=== PATIENT | male | born 1945 | race Caucasian/White ===

== ENCOUNTER 2024-11-18 05:25 | Emergency (ER) | payer MEDICARE, OTHER, SELFPAY ==
--- OUTSIDE RECORDS SUMMARY | 2024-11-18 05:27 | XMS_ITS | Clinical Summary ---
Author Organization [facility] Address [address] [place] [address] Care Team Providers Care Private Detective Name Role Phone Taryn Villalobos Primary Care Provider [phone] Allergies Active Allergy Reactions Criticality Noted Date Comments Amoxicillin Rash Low 03/10/2007 Lisinopril Rash Medium 01/27/2016 Anal sores Seasonal Allergies 04/12/2021 Other Reaction(s): Runny Nose Medications amLODIPine (NORVASC) 5 MG tablet Take 5 mg by mouth daily 3 Active atorvastatin (LIPITOR) 80 MG tablet Take 80 mg by mouth daily 3 Active nitroGLYcerin (NITROSTAT) 0.[address] 0.4 mg under the tongue every 5 minutes as needed 2 Active Glucosamine-Wale droit-Vit C-Mn (GLUCOSAMINE-CHO NDROITINOITIN) CAPS Take 1 capsule by mouth every evening Active GLUCOSAMINE-WALE DROITIN PO Take 2 capsules by mouth daily before breakfast Active multivitamin, therapeutic (THERA-VIT) TABS tablet Take 1 tablet by mouth daily Active Magnesium Oxide -Mg Supplement 500 MG TABS Take 1 tablet by mouth daily Active aspirin 81 MG EC tablet Take 81 mg by mouth every evening Active hydrOXYzine (ATARAX) 10 MG tabletIndication s:Acute pain of left knee Take 1 tablet (10 mg) by mouth every 6 hours as needed for other, itching or anxiety (adjuvant pain, spasms) 15 tablet 3 Active oxyCODONE (ROXICODONE) 5 MG tabletIndication s:Acute pain of left knee Take 1 tablet (5 mg) by mouth every 4 hours as needed for severe pain (IF pain not managed with non-pharmacolo gical and non-opioid interventions) 15 tablet 3 Active senna-docusate (SENOKOT-S/PERIC OLACE) 8.6-50 MG tabletIndication s:Acute pain of left knee Take 1 tablet by mouth 2 times daily 10 tablet 3 Active acetaminophen (TYLENOL) 325 MG tabletIndication s:Acute pain of left knee Take 2 tablets (650 mg) by mouth every 6 hours as needed for mild pain or other (and adjunct with moderate or severe pain or per patient request) 3 Active Active Problems Problem Noted Date Diagnosed Date Hypermagnesemia 07/09/2023 Acute pain of left knee 07/09/2023 Social History Tobacco Use Types Packs/Day Years Used Date Smoking Tobacco: Never Smokeless Tobacco: Never Tobacco Cessation:Counseling Given: Not Answered Adolescent Education Answer Date Record ed Getting School Help Needed Not on file 07/10 Sex and Gender Information Value Date Recorded Sex Assigned at Not on file Legal Sex Male 1:15 PM CDT Gender Identity Not on file Sexual Orientation Not on file Last Filed Vital Signs Vital Sign Reading Time Taken Comments Blood Pressure 149/87 07/13/2023 12:12 PM CDT Pulse 64 07/13/2023 12:12 PM CDT Temperature 36.7 C (98 F) 07/13/2023 12:12 PM CDT Respiratory Rate 16 07/13/2023 12:1 2 PM CDT Oxygen Saturation 96% 07/13/2023 12: 12 PM CDT Inhaled Oxygen Concentration - - Weight 109.6 kg (241 lb 9.6 oz) 023 10:15 PM CDT Height 180.3 cm (5' 11) 07/09/2023 10: 15 PM CDT Body Mass Index 33.7 07/09/2023 10:15 PM CDT Plan of Treatment Health Maintenance Due Date Last Done Comments ADVANCE CARE PLANNING 1945 ANNUAL REVIEW OF HM ORDERS 1945 LIPID 1945 HEPATITIS C SCREENING 1965 ZOSTER IMMUNIZATION (2 of 3) 07/20/2010 05/25/2010 FALL RISK ASSESSMENT 2012 RSV VACCINE (1 - 1-dose 75+ series) 2022 MEDICARE ANNUAL WELLNESS VISIT 04/24/2024 04/24/2023, 03/19/2022, 02/27/2021 COVID-19 Vaccine (1 - 2023- season) 2024 INFLUENZA VACCINE (#1) 2024 , 09/25/2019, 08/06/2018, Additional history exists PHQ-2 (once per calendar year) 2024 GLUCOSE 07/13/2026 07/13/2023, 04/2023, 07/12/2023, Additional history exists DTAP/TDAP/TD IMMUNIZATION (3 - Td or Tdap) 11/02/2029 11/02/2019, 03/29/2009 Pneumococcal Vaccine: 50+ Years Completed 01/27/2016, 10/24/2012 HPV IMMUNIZATION Aged Out No longer e ligible based on patient's age to complete this topic MENINGITIS IMMUNIZATION Aged Out No l onger eligible based on patient's age to complete this topic RSV MONOCLONAL ANTIBODY Aged Out No l onger eligible based on patient's age to complete this topic Procedures Procedure Name Priority Date/Time Associated Diagnosis Comments BASIC METABOLIC PANEL Routine 07/13/2023 6:49 AM CDT from Last 3 Months or Most Recently Relevant to Health Maintenance Results * (ABNORMAL) Basic metabolic panel (07/13/2023 6:49 AM CDT) [facility] Signature Sodium 139 135 - 145 mmol/L 07/13/2023 7:24 AM CDT [facility] Comment:Reference intervals for this test were updated on 07/02/2023 to more accurately reflect our healthy population. There may be differences in the flagging of prior results with similar values performed with this method. Interpretation of those prior results can be made in the context of the updated reference intervals. Potassium 4.3 3.4 - 5.3 mmol/L 07/13/2023 7:24 AM CDT [facility] Chloride 105 98 - 107 mmol/L 07/13/2023 7:24 AM CDT [facility] Carbon Dioxide (CO2) 24 22 - 29 mmol/L 07/13/2023 7:24 AM CDT [facility] Anion Gap 10 7 - 15 mmol/L 07/13/2023 7:24 AM CDT [facility] Urea Nitrogen 22.5 8.0 - 23.0 mg/dL 07/13/2023 7:24 AM [facility]T LABOR[facility] Creatinine 1.06 0.67 - 1.17 mg/dL 07/13/2023 7:24 AM CDT [facility] GFR Estimate 73 >60 mL/min/1. 73m2 07/13/2023 7:24 AM CDT LABORATORY Calcium 9.3 8.8 - 10.2 mg/dL 07/13/2023 7:24 AM CDT LABOR[facility]ORY Glucose 130(H) 70 - 99 mg/dL 07/13/2023 7:24 AM CDT LABORATORY Blood STRUCTURE OF LEFT HAND / Unknown Venipuncture / Unknown 07/13/2023 6:49 AM CDT 07/13/2023 7:01 AM CDT Gaye Ruff PA-C LAB - BLOOD ORDERABLES F inal Result LABORATORY [facility] [address] [facility] (1st floor, no room number) [place] [address], [place] [phone] from Last 3 Months or Most Recently Relevant to Health Maintenance Insurance [employer] MEDICARE MEDICA PRIME SOLUTION MEDICARE Advance Directives For more information, please contact: [phone] * Full Code (Latest Code Status on File) Date Activated Date Inactivated Comments 07/09/2023 10:11 PM 07/13/2023 4:37 PM All basic a nd advanced life-sustaining interventions are performed as appropriate Question Answer Comments Code status determined by: Discussion with joseline nt/ legal decision maker Care Teams Private Detective Relationship Specialty Start Date End Date Taryn Villalobos [address] [facility] [place] [id number] PCP - General Internal Medicine 07/09/23
--- OUTSIDE RECORDS SUMMARY | 2024-11-18 05:27 | XMS_ITS | Clinical Summary ---
Author Organization [facility] [employer] [facility] Address [address] [address] Phone Care Team Providers Care Ritual Circumciser Name Role Phone Taryn Villasenor MD Primary Care Provider [phone] Allergies Active Allergy Reactions Criticality Noted Date Comments Amoxicillin RASH Medium 11/08/2024 Medications oxyCODONE (Roxicodone) 5 MG immediate release tablet Take 1 Tablet by mouth every four hours as needed for Pain. 10 Tablet 11/08/2024 1:30 PM BUS GREASER 11/08/2024 Active Encounters Date Type Department Care Team Description 11/08/2024 10:34 AM BUS GREASER - 11/08/2024 1:26 PM [facility] Emergency [facility] Emergency Department [address] [place] [address] Gail Acosta DO History of renal stone (Primary Dx); Left flank pain Discharge Disposition: Home and/or Self Care 11/08/2024 Travel from Last 3 Months Social History Tobacco Use Types Packs/Day Years Used Date Smoking Tobacco: Never Assessed EH IP Custom IPV Answer Date Recorded Do you feel UNSAFE in any of your personal relationships with your family members or any other acquaintances? Deferred 2024 Sex and Gender Information Value Date Recorded Sex Assigned at Not on file Legal Sex Male 10:29 AM BUS GREASER Gender Identity Not on file Sexual Orientation Not on file Last Filed Vital Signs Vital Sign Reading Time Taken Comments Blood Pressure 165/87 11/08/2024 1:00 PM BUS GREASER Pulse 62 11/08/2024 1:00 PM BUS GREASER Temperature 36.5 C (97.7 F) 11/08/2024 10:33 AM BUS GREASER Respiratory Rate 18 11/08/2024 1:00 PM BUS GREASER Oxygen Saturation 97% 11/08/2024 1:00 PM BUS GREASER Inhaled Oxygen Concentration - - Weight 110.7 kg (244 lb) 11/08/2024 10:33 AM BUS GREASER Height 182.9 cm (6') 11/08/2024 10:33 AM BUS GREASER Body Mass Index 33.09 11/08/2024 10:33 AM BUS GREASER Plan of Treatment Health Maintenance Due Date Last Done Comments PERTUSSIS (Standing Order) 1966 TETANUS (Standing Order) 1966 Pneumococcal Vaccine: 50+ yr s (Standing Order) (1 of 1 - PCV) 1997 Shingrix (Zoster recombinant ) vaccine (Standing Order) (1 of 2) 1997 RSV Vaccination (60+ yrs) (Abrysvo/Arexvy) (1 - 1-dose 75+ series) 2022 COVID-19 Vaccine (2023-2 5 season) 2024 Influenza Vaccine Seasonal (Standing Order) (#1) 2024 HPV Vaccine (Standing Order) Aged Out No longer eligible based on patient's age to complete this topic Hepatitis B Vaccine (Standin g Order) Aged Out No longer eligible b ased on patient's age to complete this topic Procedures Procedure Name Priority Date/Time Associated Diagnosis Comments URINALYSIS, REFLEX TO CULTURE STAT 11/08/2024 12:[address] ABDOMEN PELVIS WO IV CONTRAST STAT 11/08/2024 11:45 AM BUS GREASER COMPREHENSIVE METABOLIC PANEL STAT 11/08/2024 10:58 AM BUS GREASER HEMOGRAM/DIFF STAT 11/08/2024 10:58 AM BUS GREASER HOLD SERUM TUBE STAT 11/08/2024 10:58 AM BUS GREASER HOLD NA CITRATE STAT 11/08/2024 10:58 AM BUS GREASER HOLD EDTA STAT 11/08/2024 10:58 AM BUS GREASER HOLD LI HEPARIN STAT 11/08/2024 10:58 AM BUS GREASER from Last 3 Months Results * URINALYSIS, REFLEX TO CULTURE (11/08/2024 12:38 PM BUS GREASER) Urine Color Yellow Straw, Yellow, Michelle 11/08/2024 12:51 PM [facility] Urine Appearance Clear Clear 11/08/2024 12:51 PM [facility] Urine Specific [place] 1.025 1.003 - 1.035 11/08/2024 12:51 PM [facility] Urine pH 5.5 5.0 - 8.0 11/08/2024 12:51 PM [facility] Urine Glucose Negative Negative 11/08/2024 12:51 PM [facility] Urine Ketones Negative Negative 11/08/2024 12:51 PM [facility] Urine Protein Trace Negative, Trace mg/dL 11/08/2024 12:51 PM [facility] Urine Nitrites Negative Negative 11/08/2024 12:51 PM [facility] Urine Leukocyte Esterase Negative Negative 11/08/2024 12:51 PM [facility] Urine URINE SPECIMEN COLLECTION, CLEAN CATCH / Unknown Non-blood collection / Unknown 11/08/2024 12:38 PM BUS GREASER 11/08/2024 12:43 PM BUS GREASER Narrative [facility] - 11/08/2024 12:51 PM BUS GREASER A routine urine not reflexing to a Microscopic exam means the dipstick blood test is negative. A Urine Culture is not indicated. us Gail Acosta DO EC URINE ORDERABLES Final R esult [facility] [address] [place] [address], [facility] * CT ABDOMEN PELVIS WO IV CONTRAST (11/08/2024 11:45 AM BUS GREASER) Anatomical Region Laterality Modality Abdomen, Pelvis Computed Tomogra phy 11/08/2024 11:4 5 AM BUS GREASER Narrative 11/08/2024 11:57 AM BUS GREASER This document is currently in Final Status Exam CT ABDOMEN PELVIS WO IV CONTRAST INDICATION: Flank pain, kidney stone suspected; COMPARISON: None FINDINGS: No obstructing urinary stone. Multiple bilateral urinary calculi the largest on the left in the left upper pole measures approximately 6 mm (series 2, image 46), and the largest on the right measures approximately 3 mm in the right lower pole (series 2, image 52). Lateral to the right kidney there are postoperative changes of right partial nephrectomy (series 2, image 55). Duplex right renal collecting system. Unremarkable appearance of the liver, gallbladder, pancreas, spleen, and adrenals. Normal caliber small bowel. Normal appendix. Normal colon. Cardiac stent. Coronary calcifications. Degenerative changes of the spine and pelvis. IMPRESSION: No obstructing urinary stone. No acute findings in the abdomen or pelvis. Electronically Signed: Justin Ritchie 11/08/2024 11:57 AM Procedure Note Justin Ritchie MD - 11/08/2024 This document is currently in Final Status Exam CT ABDOMEN PELVIS WO IV CONTRAST INDICATION: Flank pain, kidney stone suspected; COMPARISON: None FINDINGS: No obstructing urinary stone. Multiple bilateral urinary calculithe largest on the left in the left upper pole measures approximately 6 mm(series 2, image 46), and the largest on the right measures approximately3 mm in the right lower pole (series 2, image 52). Lateral to the rightkidney there are postoperative changes of right partial nephrectomy(series 2, image 55). Duplex right renal collecting system. Unremarkable appearance of the liver, gallbladder, pancreas, spleen, andadrenals. Normal caliber small bowel. Normal appendix. Normal colon. Cardiac stent. Coronary calcifications. Degenerative changes of the spineand pelvis. IMPRESSION: No obstructing urinary stone. No acute findings in the abdomenor pelvis. Electronically Signed: Justin Ritchie 11/08/2024 11:57 AM us Gail Acosta DO EC CT ORDERABLES Final Resu lt * HOLD LI HEPARIN (11/08/2024 10:58 AM BUS GREASER) Blood BLOOD SPECIMEN / Unknown Venipuncture / Unknown 11/08/2024 10:58 AM BUS GREASER 11/08/2024 11:03 AM BUS GREASER us Gail A Dave DO EC CHEMISTRY ORDERABLES Fin al Result Performing Organization Address [facility] Phone Number [facility] [address] [place] [address] * HOLD NA CITRATE (11/08/2024 10:58 AM BUS GREASER) Blood BLOOD SPECIMEN / Unknown Venipuncture / Unknown 11/08/2024 10:58 AM BUS GREASER 11/08/2024 11:03 AM BUS GREASER us Gail A Dave DO EC HEMATOLOGY ORDERABLES Fi nal Result Performing Organization Address [facility] Phone Number [facility] [address] [place] [address] * HOLD PURPLE TUBE (11/08/2024 10:58 AM BUS GREASER) Blood BLOOD SPECIMEN / Unknown Venipuncture / Unknown 11/08/2024 10:58 AM BUS GREASER 11/08/2024 11:03 AM BUS GREASER Gail A Dave DO EC HEMATOLOGY ORDERABLES Fi nal Result Performing Organization Address [facility] Phone Number [facility] [address] [place] [address] * HOLD SERUM TUBE (11/08/2024 10:58 AM BUS GREASER) Blood BLOOD SPECIMEN / Unknown Venipuncture / Unknown 11/08/2024 10:58 AM BUS GREASER 11/08/2024 11:03 AM BUS GREASER us Gail A Dave DO EC CHEMISTRY ORDERABLES Fin al Result Performing Organization Address [facility] Phone Number [facility] [address] [place] [address] * (ABNORMAL) COMPREHENSIVE METABOLIC PANEL (11/08/2024 10:58 AM BUS GREASER) Sodium 140 134 - 143 mEq/L 11/08/2024 11:20 AM [facility] Potassium 4.2 3.4 - 5.1 mEq/L 11/08/2024 11:20 AM [facility] Chloride 111(H) 99 - 110 mEq/L 11/08/2024 11:20 AM [facility] Carbon Dioxide 22 19 - 29 mEq/L 11/08/2024 11:20 AM [facility] Anion Gap 7.0 3.0 - 15.0 mEq/L 11/08/2024 11:20 AM [facility] Blood Urea Nitrogen 23 5 - 24 mg/dL 11/08/2024 11:20 AM [facility] Creatinine 0.97 0.70 - 1.20 mg/dL 11/08/2024 11:20 AM [facility] Glomerular Filtration Rate 80 >60 mL/min/1. 73 m*2 11/08/2024 11:20 AM [facility] Comment:Risk of cardiovascul ar disease increases when GFR is abnormal; persistently reduced GFR values are a specific indication of CKD. This calculation uses CKD- EPI 2020 equation without adjustment for race; it has not been validated in women. Calcium 9.1 8.4 - 10.5 mg/dL 11/08/2024 11:20 AM [facility] Glucose 110(H) 70 - 99 mg/dL 11/08/2024 11:20 AM [facility] Protein, Total 7.5 6.0 - 8.0 g/dL 11/08/2024 11:20 AM [facility] Albumin 3.9 3.5 - 5.0 g/dL 11/08/2024 11:20 AM [facility] Alkaline Phosphatase 72 40 - 150 IU/L 11/08/2024 11:20 AM [facility] Aspartate Aminotransferase 25 10 - 40 IU/L 11/08/2024 11:20 AM [facility] Alanine Aminotransferase 26 6 - 40 IU/L 11/08/2024 11:20 AM [facility] Bilirubin, Total 0.7 0.2 - 1.2 mg/dL 11/08/2024 11:20 AM [facility] Blood BLOOD SPECIMEN / Unknown Venipuncture / Unknown 11/08/2024 10:58 AM [facility] 11/08/2024 11:03 AM [facility] - 11/08/2024 11:20 AM [facility] Current ADA criteria for Glucose: Normal: 70-99 mg/dL Impaired Fasting Glucose: 100-125 mg/dL Diabetes Mellitus: at or above 126 mg/dL The diagnosis of diabetes must be confirmed on a subsequent day by measuring Fasting Plasma Glucose, 2-hr PG or random plasma glucose (if symptoms are present). us Gail Acosta DO CHEMISTRY ORDERABLES Fin al Result Performing Organization Address City/State/[facility] Co de Phone Number [facility] [address] [place] [address] * HEMOGRAM/DIFFERENTIAL (11/08/2024 10:58 AM [facility]) WBC 7.1 3.2 - 11.0 10*9/L 11/08/2024 11:05 AM [facility] RBC 4.71 4.14 - 5.76 10*12/L 11/08/2024 11:05 AM [facility] HGB 14.7 12.9 - 16.9 g/dL 11/08/2024 11:05 AM [facility] HCT 42.7 38.4 - 49.7 % 11/08/2024 11:05 AM [facility] MCV 90.7 81.4 - 99.0 fL 11/08/2024 11:05 AM [facility] MCH 31.2 26.7 - 33.1 pg 11/08/2024 11:05 AM [facility] MCHC 34.4 31.6 - 35.5 g/dL 11/08/2024 11:05 AM [facility] RDW 12.5 11.3 - 14.6 % 11/08/2024 11:05 AM [facility] PLT 207 130 - 375 10*9/L 11/08/2024 11:05 AM [facility] Neutrophils % 75.2 % 11/08/2024 11:05 AM [facility] Lymphocytes % 18.0 % 11/08/2024 11:05 AM [facility] Monocytes % 5.6 % 11/08/2024 11:05 AM [facility] Eosinophils % 0.7 % 11/08/2024 11:05 AM [facility] Basophils % 0.4 % 11/08/2024 11:05 AM [facility] Immature Granulocytes % 0.1 % 11/08/2024 11:05 AM [facility] Neutrophils Absolute 5.3 1.5 - 7.6 10*9/L 11/08/2024 11:05 AM [facility] Lymphocytes Absolute 1.3 0.8 - 3.3 10*9/L 11/08/2024 11:05 AM [facility] Monocytes Absolute 0.4 0.2 - 0.9 10*9/L 11/08/2024 11:05 AM [facility] Eosinophils Absolute 0.1 0.0 - 0.4 10*9/L 11/08/2024 11:05 AM [facility] Basophils Absolute 0.0 0.0 - 0.1 10*9/L 11/08/2024 11:05 AM [facility] Immature Granulocytes Absolute 0.01 0.00 - 0.06 10*9/L 11/08/2024 11:05 AM [facility] Blood BLOOD SPECIMEN / Unknown Venipuncture / Unknown 11/08/2024 10:58 AM BUS GREASER 11/08/2024 11:03 AM BUS GREASER us Gail Acosta DO EC HEMATOLOGY ORDERABLES Fi nal Result [facility] [address] [place] [address], [facility] from Last 3 Months Insurance [employer] MEDICARE COST PART A&B Care Teams Ritual Circumciser Relationship Specialty Start Date End Date Taryn Villasenor MD [address] [facility] [place] [id number] PCP - General Internal Medicine 11/08/24
--- OUTSIDE RECORDS SUMMARY | 2024-11-18 05:28 | XMS_ITS | Encounter Summary ---
Author Organization [facility] Address [address] [address] Phone Care Team Providers Care Night Custodian Name Role Phone Taryn Villasenor MD Primary Care Provider [phone] Encounter Details Date Type Department Care Team (Latest Contact Info) Description 11/08/2024 Travel Social History Tobacco Use Types Packs/Day Years Used Date Smoking Tobacco: Never Assessed EH IP Custom IPV Answer Date Recorded Do you feel UNSAFE in any of your personal relationships with your family members or any other acquaintances? 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 Gender Identity Not on file Sexual Orientation Not on file documented as of this encounter Functional Status * Patient's Vision Adequate to Safely Complete Daily Activities Answer Date of Assessment Author Yes 11/08/2024 11:00 AM Viktor Agee, RN * Patient's Memory Adequate to Safely Complete Daily Activities Answer Date of Assessment Author Yes 11/08/2024 11:00 AM Viktor Agee, RN documented as of this encounter Mental Status * Patient's Judgment Adequate to Safely Complete Daily Activities Answer Entry Date Author Yes 11/08/2024 11:00 AM Viktor Agee, RN documented in this encounter Plan of Treatment Not on file documented as of this encounter Visit Diagnoses Not on filedocumented in this encounter Care Teams Night Custodian Relationship Specialty Start Date End Date Taryn Villasenor MD [address] [place] [address] [place] [id number] PCP - General Internal Medicine 2/2/25 documented as of this encounter
--- OUTSIDE RECORDS SUMMARY | 2024-11-18 05:28 | XMS_ITS | Data Portability ---
Author Organization [place] [facility] [place] [facility] Address [address] [place] [address] Care Team Providers Care Metal Handler Name Role Phone KULWANT HARDY Primary Care Provider CHICA WILSON Primary Care Provider [phone] Assessment Encounter Date Assessment Date Assessment LastModified by Organization Details LastModified Time 06/02/2024 06/02/2024 79 year old male with history of prostate cancer who is here today due to renal mass [email or web address] Not available 06/09/2024 14:17:54 06/24/2024 06/24/2024 79 year old male with a history of right renal masses, nephrolithias is, and prostate cancer. Not available 06/24/2024 16:27:55 08/18/2024 08/18/2024 79 year old male with a history of right renal oncocytomas, nephrolithias is, and prostate cancer. Not available 08/18/2024 11:55:36 11/11/2024 11/11/2024 79 year old male with a history of right renal oncocytomas, nephrolithias is, and prostate cancer. Not available 11/11/2024 08:21:03 Plan of Treatment Reminders Order Date Submit Date Provider Last Modified By Organization Details Last Modified Time Details Appointments None recorded. Lab PSA, total, serum or plasma [address] [facility], [address], [address], [place], [address], 02/05/202 5 14:18:57 Referral orthopedic surgeon referral 2024 025 [facility], [address], [address], [place], [address], 5 04:07:39 Procedures None recorded. Surgeries partial nephrectomy , robot assisted laparoscopi c, with intra-opera tive ultrasound (SURG) 2023 024 [email or web address] Not available 4 09:42:[address], abdomen, w/wo contrast 2023 024 [email or web address] [facility], [address] [place], [address], 5 11:00:26 Medication Orders None recorded. Patient TargetsNo targets recorded. Patient Instructions Encounter Date Encounter Id Patient Instructions Last Modified By Organization Details Last Modified Time 06/02/2024 [id number] We discussed the natural history of renal masses. While some of these masses (about 20%) may be benign, the concern is that this represents renal cell carcinoma. We then discussed the significance of the size of renal masses. For masses under 3 cm, the risk of metastatic disease is <1%. Masses larger than this carry a significant risk for metastatic disease and treatment should be seriously considered. - He will follow-up with Dr. Jarvis to discuss surgical options [email or web address] Not available 06/09/2024 14:18:29 06/24/2024 [id number] Two Right Renal Masses: We discussed the natural history of renal masses. While some of these masses (about 20%) may be benign, the concern is that this represents renal cell carcinoma. We then discussed the significance of the size of renal masses. For masses under 3 cm, the risk of metastatic disease is <1%. Masses larger than this carry a significant risk for metastatic disease and treatment should be seriously considered. We then discussed treatment options including: -Observation -Active surveillance -Partial nephrectomy -Radical nephrectomy -Percutaneous cryoablation -Percutaneous radiofrequency ablation We also touched on the role of percutaneous biopsy and its utility in guiding decision making. Based on my review of his imaging I think this would be best addressed with double right partial nephrectomy. We discussed the risks of surgery including bleeding requiring transfusion, infection, injury to surrounding structures, need for reoperation, risk of positive margin, urine leak, postoperative ileus, recurrence, and anesthetic risks including DVT/PE, MS, and CVA. He woudl like to proceed. Prostate cancer: He remains no evidence of disease. We will repeat his prostate specific antigen later this year.. Nephrolithiasis: His stones are non-obstructing and he is now asymptomatic. I recommend we observe for now while we address his renal masses. [email or web address] Not available 06/24/2024 16:29:05 08/18/2024 [id number] Renal oncocytoma s: We discussed these are benign tumors and no further treatment is needed. I do recommend a CT in 3 months to assess for healing and ensure no deleterious effects from surgery. Nephrolithiasis: We will reassess his stone burden with imaging in 3 months as above Prostate cancer: He is no evidence of disease. We will repeat his prostate specific antigen annually. [email or web address] Not available 08/18/2024 11:55:23 11/11/2024 [id number] Renal oncocytoma s: No evidence of recurrence. Nephrolithiasis/Lo w back pain: I am not very convinced that his pain is from his non-obstructing kidney stones. His pain is quite low in nature compared to his kidney and his pain also radiates down his left leg. I am more concerning for a pinch nerve/slipped disc/or muscle injury. I will have him evaluated as soon as possible with orthopaedic surgery. Prostate cancer: He is no evidence of disease. He is due for a repeat prostate specific antigen. We will repeat his prostate specific antigen annually. [email or web address] Not available 11/11/2024 08:51:07 Reason for Referral Orthopedic Surgeon Referral for Low back pain Referring Physician: Antoni Jarvis, Urology, Encounter Date: 11/11/2024 Results Created Date Observation Date Name Description Value Unit Range Abnormal Flag Note LastModifiedBy Organization Detail LastModifiedTime 06/01/2005/25/2024 CT, abdom en + pelvi s, w/o contr ast No observ ation record ed. [email or web address] Not Available 2023 11:50:27 06/01/2005/23/2024 CT, abdom en + pelvi s, w/o contr ast No observ ation record ed. [email or web address] Not Available 2023 11:51:13 06/09/20 24 06/01/2024 MRI, abdom en, w/wo contr ast No observ ation record ed. [email or web address] Not Available 2023 11:01:09 11/09/19 25 11/08/2024 CT, abdom en + pelvi s, w/o contr ast No observ ation record ed. Not Available 2024 08:48:28 Result Notes None recorded. Problems Name Problem SNOMED Code Status Onset Date Resolution Date Notes Provider Name and Address Organization Details Recorded Time Renal mass 766255017 Active 2023 El Meat null, [facility] 4 08:58:19 Hypertensive disorder 14987933 Active 2023 El Meat null, [facility] 4 08:59:49 Coronary arterioscleros is 31005314 Active 2023 [facility] null, [facility] 4 09:00:20 Hypercholester olemia 75620378 Active 2023 [facility] Meat null, [facility] 4 09:00:25 Polyp of colon 45736909 Active 2023 El Meath null, [facility] 4 09:00:32 Malignant tumor of prostate 655352408 Active 2023 El Meat null, [facility] 4 09:00:40 Osteoarthritis 715240815 Active 2023 El Meat null, [facility] 4 09:00:48 Problem Notes None recorded. Procedures Surgical History Date Name Laterality Status Provider Name and Address Organization Details Recorded Time 11/11/19 25 COMPLEX VISIT completed Antoni Jarvis MD [address] [place] [address],[address], [place], [address], [facility] 11/11/2024 08:20:59 11/11/19 25 Blood Draw/DIRECTOR EXPERIMENTAL MEDICINE/PSA RESULTS completed Manda Cabello [facility] 11/11/2024 08:58:25 06/24/20 24 COMPLEX VISIT completed Antoni Jarvis MD [address], [place], [address], [facility] [place] [facility] 06/24/2024 16:27:26 10/07/19 21 Diagnostic colonoscopy completed Not Available Health Note 05/31/2024 16:55:27 03/18/20 13 Laps surg [id number] rpbic rad completed Not Available [facility] 03/17/2020 20:40:21 11/28/19 13 Biopsy of prostate completed Not Available [facility] 03/17/2020 20:40:21 Insert epicard eltrd open completed Not Available Health Note 05/31/2024 16:55:27 Removal of prostate completed Not Available Health Note 05/31/2024 16:55:27 Prostatectomy (turp) completed Not Available Health Note 05/31/2024 16:55:27 Imaging Results Imaging Date Name Status LastModified by Organiz ation Details LastModified Time 05/25/2024 CT, abdomen + pelvis, w/o contrast completed Information not available 06/01/2024 11:50:27 05/23/2024 CT, abdomen + pelvis, w/o contrast completed Information not available 06/01/2024 11:51:13 06/01/2024 MRI, abdomen, w/wo contrast completed [email or web address] Information not available 06/11/2024 11:01:09 11/08/2024 CT, abdomen + pelvis, w/o contrast completed Information not available 11/11/2024 08:48:28 Procedure Notes None recorded. Medical Equipment None Reported. Allergies Allergen ID Allergen Name Allergen Category Reaction Reaction Severity Criticality Documentation Date Start Date Code Code System Note Provider Name and Address Organization Details Recorded Time 380925 amoxicill in medicatio n Not available Not available Not available 03/16/2020 723 RxNorm Not Available Not Available Not Available 818819 lisinopri l medicatio n Not available Not available Not available 06/18/2024 05258 RxNorm Not Available Not Available Not Available Medications Name Sig Start Date Stop Date Status Note LastModified by Organization Details LastModified Time atorvasta tin 80 mg tablet TAKE 1 TABLET BY MOUTH ONCE DAILY active Not Available Not Available No t Available hydrocodo ne 5 mg-acetam inophen 325 mg tablet TAKE 1 TO 2 TABLETS BY MOUTH EVERY 4 HOURS NEEDED FOR PAIN MAX ACETAMIN OPHEN DOSE 400MG IN 24 HOURS 06/18 completed Not Available Not Available Not Available prednison e 20 mg tablet TAKE 1 TABLET BY MOUTH ONCE DAILY FOR 5 DAYS 06/18 completed Not Available Not Available Not Available amlodipin e 5 mg tablet TAKE 1 TABLET BY MOUTH ONCE DAILY active Not Available Not Available No t Available allopurin ol 100 mg tablet TAKE 1 TABLET BY MOUTH ONCE DAILY FOR 2 WEEKS, THEN INCREASE TO 2 TABLETS DAILY FOR 2 WEEKS 11/11 completed HN: Patient reports no longer taking Not Available Not Available Not Available sulfameth oxazole 800 mg-trimet hoprim 160 mg tablet TAKE 1 TABLET BY MOUTH TWICE DAILY FOR 7 DAYS 06/18 completed Not Available Not Available Not Available acetamino phen ER 650 mg tablet,ex tended release 650 mg 4/day active Not Available Not Available No t Available oxycodone 15 mg tablet 5mg Every 4 hours as needed active Not Available Not Available No t Available nitroglyc simran 0.4 mg sublingua l tablet DISSOLVE ONE TABLET UNDER THE TONGUE EVERY 5 MINUTES NEEDED FOR CHEST PAIN. DO NOT EXCEED A TOTAL OF 3 DOSES IN 15 MINUTES active Not Available Not Available No t Available ibuprofen 600 mg tablet TAKE 1 TABLET BY MOUTH EVERY 6 HOURS NEEDED FOR PAIN MAX DOSE OF 3200 MG PER DAY 06/18 completed Not Available Not Available Not Available methylpre dnisolone 4 mg tablets in a dose pack TAKE BY MOUTH DIRECTED ON INSIDE OF PACKAGE 06/18 completed Not Available Not Available Not Available fluticaso ne propionat e 50 mcg/actua tion nasal spray,lyndsay pension USE 2 SPRAY(S) IN EACH NOSTRIL ONCE DAILY active Not Available Not Available No t Available magnesium 250 mg (as magnesium oxide) tablet 250 mg 1/day active Not Available Not Available No t Available Vitamin C 1000 mg 1/day active Not Available Not Available No t Available amlodipin e 5mg 1/day 06/18 completed Not Available Not Available Not Available B12 1000 mcg 1/day active Not Available Not Available No t Available H2Q CoQ10 200 mg/gram oral powder 200mg 1/day active Not Available Not Available No t Available zinc 15 mg-colos- egg-hb232 -psacc1 50 mg-thyme 1 mg-aceman 1 mg capsule 50 mg 1/day active Not Available Not Available No t Available Vitals Date Recorded Body mass index (BMI) Body height Body weight Provider Name and Address Organization Details Last Updated DateTime 06/02/2024 33.5 kg/m2 180.34 cm 596057.298 025503 g Not Available Health Note 06/02/2024 14:28:34 Date Recorded Body height Provider Name an d Address Organization Details Last Updated DateTime 06/24/2024 [facility] Date Recorded Body height Provider Name an d Address Organization Details Last Updated DateTime 08/18/2024 180.34 cm El [facility] 11:21:58 Date Recorded Body height Provider Name an d Address Organization Details Last Updated DateTime 11/11/2024 180.34 cm El [facility] 08:42:01 Social History Question Answer Notes LastModified by Organizat ion Details LastModified Time Tobacco Smoking Status Never Smoker Not Available Health Note 05/31/2024 16:55:28 What Is Your Level Of Alcohol Consumption? None [email or web address] Information not available 06/02/2024 What Is Your Level Of Caffeine Consumption? None [email or web address] Information not available 05/31/2024 How Much Tobacco Do You Chew? None [email or web address] Information not available 05/31/2024 Do You Or Have You Ever Used E-cigarettes Or Vape? Never Used Electronic Cigarettes [email or web address] Information not available 05/31/2024 Race White Information n ot available 03/17/2020 Marital Status Informati on not available 03/17/2020 What Was The Date Of Your Most Recent Tobacco Screening? 11/11/2024 Information not available 11/11/2024 What Is Your Relationship Status? [email or web address] Information not available 05/31/2024 Are You Sexually Active? No [email or web address] Information not available 05/31/2024 Do You Or Have You Ever Used Smokeless Tobacco? Never Used Smokeless Tobacco [email or web address] Information not available 05/31/2024 Do You Use Any Illicit Or Recreational Drugs? No [email or web address] Information not available 05/31/2024 Has Tobacco Cessation Counseling Been Provided? No Information not available 06/24/2024 Do You Or Have You Ever Used Any Other Forms Of Tobacco Or Nicotine? No Information not available 06/24/2024 How Many Days In The Past Year Have You Consumed 5 Or More Drinks? 0 [email or web address] Information no t available 05/31/2024 Sex: Unknown Functional Status None recorded. Mental Status None recorded. Family History Relationship Description Onset Age of this Age Resolved Age Notes LastModified by Organization Details LastModified Time Unspecified Relation Family history of renal stone [email or web address] Not available 05/08 16:55:26 Medical History Condition Response Diabetes N Sexually Transmitted Infection N Bleeding Disorder N High Blood Pressure Y Kidney Stones Y Cancer Y Lung Disease N Depression N High Cholesterol N GERD/Acid Reflux N Heart Disease Y Immunizations Vaccine Type Date Status Note Provider Nam e and Address Organization Details Recorded Time influenza, unspecified formulation 9 completed El Meath [facility] 08/28/2024 12:09:07 zoster live 8 completed Not Available Health Note 05/31/2024 16:55:31 Influenza, adjuvanted, quadrivalent, PF 0 [facility] 12:09:07 pneum[facility] 12:09:07 influenza, unspecified formulation 5 [facility] 12:09:07 Tdap 9 completed El Meath null, [facility] 08/28/2024 12:09:07 Pneumococcal conjugate PCV 13 6 [facility] 12:09:07 zoster live 0 completed El Meath null, [facility] 08/28/2024 12:09:07 Influenza, high-dose, trivalent, PF 7 completed El Meath null, [facility] 08/28/2024 12:09:07 Influenza, high-dose, trivalent, PF 4 completed El Meath null, [facility] 08/28/2024 12:09:07 Influenza, high-dose, trivalent, PF 5 completed El Meath null, [facility] 08/28/2024 12:09:07 Influenza, high-dose, trivalent, PF 8 completed El Meath null, [facility] 08/28/2024 12:09:07 Influenza, high-dose, trivalent, PF 8 completed El Meath null, [facility] 08/28/2024 12:09:07 Influenza, high-dose, trivalent, PF 9 completed El Me[place] null, [facility] 08/28/2024 12:09:07 Influenza, split virus, trivalent, preservative 7 completed El Meath null, [facility] 08/28/2024 12:09:07 Influenza, split virus, trivalent, preservative 2 completed El Meath null, [facility] 08/28/2024 12:09:07 Influenza, split virus, trivalent, PF 3 completed El Meat null, [facility] 08/28/2024 12:09:07 Td (adult), 2 Lf tetanus toxoid, preservative free, adsorbed 0 completed El Meat null, [facility] 08/28/2024 12:09:07 Past Encounters Encounter ID Performer Location Encounter Start Date Encounter Closed Date Diagnosis/Indication Diagnosis SNOMED-CT Code Diagnosis ICD10 Code Diagnosis Note [id number] ADILENE Melo [facility] [address] [place] [address] [place] [id number] 06/02/2024 14:25:49 06/15/2024 10:48:27 Renal mass 666223493 N28.89 [id number] Antoni Jarvis MD [facility] [address] [place] [address],it e [address] [place] [id number] 06/24/2024 15:54:51 06/25/2024 09:18:54 Kidney stone 07221074 N20.0 Renal mass 256088736 N28 .89 Malignant tumor of prostate 687581797 C61 [id number] Antoni Jarvis MD [facility] [address] [place] [address],[facility] e [address] [place] [id number] 08/18/2024 11:17:59 08/18/2024 12:10:35 Oncocytoma of right kidney 1490873351 532372 D30.01 Kidney stone 76781494 N2 0.0 Malignant tumor of prostate 768763682 C61 [id number] El Alexis [facility] [address] [place] [address],[facility] e [address] [place] [id number] 11/11/2024 08:40:33 11/17/2024 13:09:21 Oncocytoma of right kidney 5098039472 719794 D30.01 Kidney stone 07670316 N2 0.0 Malignant tumor of prostate 114982192 C61 Low back pain 890622644 M54.50 Health Concerns Section Related Observation LastModified by Organization Detai ls LastModified Time None Recorded Concern Status LastModified by Organization Details LastModified Time None Recorded Advance Directives Directive None Recorded Payers Encounter Date Sequence Insurance Name Policy Number Policy Stroud Covered Member ID Stroud Member ID Guarantor Name 06/02/2024 1 [employer] [place] [place] [id number] Harley Corbett [id number] Harley Corbett Jr 06/24/2024 1 [employer] [place] [id number] Harley Corbett [id number] Harley Corbett Jr 08/18/2024 1 [employer] - [employer] - [place] [id number] Harley Corbett [id number] Harley Corbett Jr 11/11/2024 1 [employer] - [employer] - 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 Stephens15 months later had radiation therapy due to PSA recurrencePSA remains undetectable. <0.02 &04/24/2023) Due to acute left flank pain he presented to the ER to be seenCT ab/pelvis without contrast obtained on 05/25/2024:Impression: 1. Multiple stable nonobstructing renal calculi. No hydroureteronephrosis .2. Exophytic right renal solid mass versus less likely cyst measuring 3.0 centimeters. This will need to be further assessed with an outpatient CT or MR with a renal protocol. Renal MRI obtained on 06/01/2024 showing A 3.3 x 2.3 cm solid enhancing mass exophytic in nature involving the lower pole right kidney; highly concerning for a renal cell carcinoma. A 1.4 cm solid enhancing mass interpolar region right mid kidney; concerning for renal cell carcinoma. No other renal abnormalities identified. The liver, spleen and pancreas are normal. Gallbladder is unremarkable. No adrenal pathology. No retroperitoneal lymphadenopathy. ADILENE Mays [address] [facility],[address], [place], [address], [facility] 06/09/2024 14:18:57 06/24/2024 text/html This is a 79 yea r old male who is here for the ongoing management of right renal masses, nephrolithiasis, and prostate cancer. He developed new onset left flank pain and presented to the Emergency Room 05/25/2024.He underwent a CT of the abdomen and pelvis without intravenous contrast on 05/25/2024 which revealed bilateral non-obstructing renal calculi and a possible 3 cm right renal mass.He underwent an MRI of the abdomen with and without intravenous contrast on 06/01/2024 which revealed a 1 cm and 3 cm exophytic renal masses.He has since passed multiple stones and his flank pain has resolved. He is status post robotic-assisted laparoscopic radical prostatectomy and bilateral pelvic lymphadenectomy (2012).He subsequently underwent salvage radiation therapy in 2013.His most recent prostate specific antigen was <0.02 ng/mL (04/24/2023). Antoni Jarvis MD [address] [facility] [address], [place], [address], [facility] 06/24/2024 16:29:15 08/18/2024 text/html This is a 79 yea r old male who is here for the ongoing management of right renal oncocytomas, nephrolithiasis, and prostate cancer. He developed new onset left flank pain and presented to the Emergency Room 05/25/2024.He underwent a CT of the abdomen and pelvis without intravenous contrast on 05/25/2024 which revealed bilateral non-obstructing renal calculi and a possible 3 cm right renal mass.He underwent an MRI of the abdomen with and without intravenous contrast on 06/01/2024 which revealed a 1 cm and 3 cm exophytic renal masses.He has since passed multiple stones and his flank pain has resolved. He is now status post robotic-assisted laparoscopic right partial nephrectomy 08/07/2024.Pathology: Both tumors pure oncocytoma, negative margins He is status post robotic-assisted laparoscopic radical prostatectomy and bilateral pelvic lymphadenectomy (2012).He subsequently underwent salvage radiation therapy in 2013.His most recent prostate specific antigen was <0.02 ng/mL (04/24/2023). Antoni Jarvis MD [address] [place] [address],[address], [place], [address], [facility] 08/18/2024 11:55:51 11/11/2024 text/html This is a 79 yea r old male who is here for the ongoing management of right renal oncocytomas, nephrolithiasis, and prostate cancer. He developed new onset left flank pain and presented to the Emergency Room 05/25/2024.He underwent a CT of the abdomen and pelvis without intravenous contrast on 05/25/2024 which revealed bilateral non-obstructing renal calculi and a possible 3 cm right renal mass.He underwent an MRI of the abdomen with and without intravenous contrast on 06/01/2024 which revealed a 1 cm and 3 cm exophytic renal masses.He is now status post robotic-assisted laparoscopic right partial nephrectomy 08/07/2024.Pathology: Both tumors pure oncocytoma, negative margins He developed worsening left sided flank pain on 11/08/2024 and he presented to the Emergency Room.He completed a CT of the abdomen and pelvis without intravenous contrast on 11/08/2024 which revealed bilateral nephrolithiasis measuring up to 6 mm on the left and 3 mm on the right without hydronephrosis or obstruction. He is status post robotic-assisted laparoscopic radical prostatectomy and bilateral pelvic lymphadenectomy (2012).He subsequently underwent salvage radiation therapy in 2013.His most recent prostate specific antigen was <0.02 ng/mL (04/24/2023). El plummer [place] [facility] [place] [facility] 11/11/2024 10:00:14
--- OUTSIDE RECORDS SUMMARY | 2024-11-18 05:28 | XMS_ITS | Clinical Summary ---
[facility] Address [address] [place] [address] Care Team Providers Care Rehab Spec Name Role Phone Unavailable Primary Care Provider Unavailabl e Source Comments You are receiving this document as you are listed as the primary care provider,follow-up provider, or the patient has been referred to you for consultation.This is in compliance with the Medicare andMedicaid EHR Incentive Program,which states Providers who transition their patient to another setting of careor provider of care or refers their patient to another provider of care shouldprovide summary care record for each transition of care or referral. Renrendai Medications sulfamethoxazol e-trimethoprim (BACTRIM DS) 800-160 MG tablet Take 1 Tablet by mouth two times a day. 07/03/2023 Active nitroglycerin (NITROSTAT) 0.4 MG sublingual tablet DISSOLVE ONE TABLET UNDER THE TONGUE EVERY 5 MINUTES NEEDED FOR CHEST PAIN. DO NOT EXCEED A TOTAL OF 3 DOSES IN 15 MINUTES 04/21/2023 Active atorvastatin (LIPITOR) 80 MG tablet Take 1 Tablet (80 mg) by mouth daily. 06/28/2023 Active amLODIPine (NORVASC) 5 MG tablet Take 1 Tablet (5 mg) by mouth daily. 04/25/2023 Active Glucosamine-Cho ndroit-Vit C-Mn (GLUCOSAMINE CHONDR 1500 COMPLX) Active Active Problems No known active problems Social History Tobacco Use Types Packs/Day Years Used Date Smoking Tobacco: Never Tobacco Cessation:Counseling Given: Not Answered Sex and Gender Information Value Date Recorded Sex Assigned at Not on file Legal Sex Male 10:28 AM CDT Gender Identity Not on file Sexual Orientation Not on file Last Filed Vital Signs Vital Sign Reading Time Taken Comments Blood Pressure 151/95 07/09/2023 11:31 AM CDT Pulse 71 07/09/2023 11:31 AM CDT Temperature 36.3 C (97.4 F) 07/09/2023 11:31 AM CDT Respiratory Rate 12 07/09/2023 11:31 AM CDT Oxygen Saturation 97% 07/09/2023 11:31 AM CDT Inhaled Oxygen Concentration - - Weight - - Height - - Body Mass Index - - Plan of Treatment Health Maintenance Due Date Last Done Comments Hep C Screening (Preventive Services) 1945 Medicare Welcome Visit 1945 Zoster/Shingles (2 of 3) 07/20/2010 05/25/2010 RSV (1 - 1-dose 75+ series) 2022 COVID-19 Vaccine ( - 2023- season) 2024 Influenza (#1) 2024 06/15/2020, 09/07, 08/06/2018, Additional history exists DTaP/Tdap/Td (3 - Tdap) 11/02/2029 11/02/2019, 03/29 Pneumococcal 65+ Yrs Completed 01/27/2016, 10/24/19 13 HepA Aged Out No longer eligi ble based on patient's age to complete this topic HepB Aged Out No longer eligi ble based on patient's age to complete this topic Hib Aged Out No longer eligi ble based on patient's age to complete this topic IPV (Polio) Aged Out No longer eligi ble based on patient's age to complete this topic MCV4 Aged Out No longer eligi ble based on patient's age to complete this topic Insurance [employer]
--- OUTSIDE RECORDS SUMMARY | 2024-11-18 05:28 | XMS_ITS | Clinical Summary ---
Author Organization [employer] [facility] Address [place], [place] [address] Care Team Providers Care Automation And Controls Supervisor Name Role Phone Taryn Villasenor MD Primary Care Provider [phone] Laura Stephens MD Unavailable [phone] Allergies Active Allergy Reactions Criticality Noted Date Comments Amoxicillin Rash 03/10/2007 Homeopathic Products 03/10/2007 Lisinopril Rash Medium 01/27/2016 Anal sores Pollen Extracts Runny Nose 04/12/2021 Medications MEDICATION ORDER COMPOSER Melaleuca vitamin sulpplements 0 009 Active Magnesium Oxide 500 mg cap Take by mouth. 0 020 Active medication order composer Take by mouth. Vit C B12 Vit D Zinc CoQ10 0 022 Active multivitamin (MVI) tablet Take 1 Tablet by mouth once daily. Active glucosamine-chondroitin , 500-400mg, (COSAMIN DS) 500-400 mg tablet Take 2 tabs in morning, then 1 in evening 0 023 Active nitroglycerin (NITROSTAT) 0.4 mg sublingual tabletIndications:Coron heriberto artery disease involving [place] coronary artery of [place] heart without angina pectoris DISSOLVE ONE TABLET UNDER THE TONGUE EVERY 5 MINUTES NEEDED FOR CHEST PAIN. DO NOT EXCEED A TOTAL OF 3 DOSES IN 15 MINUTES 25 Tablet 024 Active amLODIPine (NORVASC) 5 mg tabletIndications:Hyper tension Take 1 tablet by mouth once daily 90 Tablet 3 024 Active acetaminophen (TYLENOL ARTHRITIS ORAL) Take 600 mg by mouth three times daily. Active atorvastatin (LIPITOR) 80 mg tabletIndications:Pure hypercholesterolemia Take 1 Tablet (80 mg) by mouth once daily. 90 Tablet 3 024 Active fluticasone (50 mcg per actuation) nasal solution (FLONASE) Inhale 2 Sprays into affected nostril(s) once daily if needed for Rhinitis. Active aspirin (ECOTRIN) 81 mg enteric coated tabletIndications:Coron heriberto artery disease involving [place] coronary artery of [place] heart without angina pectoris Take 1 Tablet (81 mg) by mouth once daily with a meal. 30 Tablet 08/09/20 24 11:42 AM PRESS SERVICE READER 024 Active oxyCODONE (ROXICODONE) 5 mg immediate release tabletIndications:Prost ate cancer (HC) Take 1 Tablet (5 mg) by mouth every 4 hours if needed for Pain. 10 Tablet 08/09/20 24 11:42 AM PRESS SERVICE READER 024 Active polyethylene glycoL (Miralax) 17 gram/scoop powderIndications:Prost ate cancer (HC) Mix 1 scoop (17 g) in liquid then take by mouth once daily. 238 g 08/09/20 11:42 AM PRESS SERVICE READER 024 Active Active Problems Problem Noted Date Diagnosed Date Prepatellar bursitis of left knee 07/30/2023 Primary osteoarthritis involving multiple joints 03/26/2018 Personal history of colonic polyps 01/25/2016 Coronary artery disease 08/15/2015 Overview (03/26/2018): 09/2014: ST elevation myocardial infarction, s/p stenting of distal circumflex at [facility] (left ventricular hypert rophy) due to hypertensive disease 03/11/2013 Overview (03/11/2013): Mild, per echo 10/2012 Prostate cancer 03/09/2013 Overview (03/26/2018): S/p prostatectomy and radiation therapy Dermatitis 06/14/2011 Hypertension 02/28/2010 Obesity, unspecified 03/29/2009 Rosacea 03/23/2009 Pure hypercholesterolemia 03/10/2007 Overview (03/10/2007): mild Resolved Problems Problem Noted Date Diagnosed Date Resolved Date Pain in left ankle 11/27/2014 7 CO (myocardial infarction) 09/14/2014 0 03/26/2018 Rectal irritation 03/06/2011 09/09/2017 Calculus of kidney 10/26/2007 3 Encounters Date Type Department Care Team Description 08/18/2024 Transcribe Orders [facility] [address] [place] [address] Antoni Jarvis MD from Last 3 Months Immunizations Name Administration Dates Next Due Influenza Virus, Unspecified 08/07/2015 Influenza, High-dose Inactivated 019,08/06/2018,06/27/2017,2014,07/08/2014 Influenza, IIV3 (Age 6-35 mos) 09/16/2013 Influenza, IIV3 (Age >=3 years) 09/16/20 13,09/23/2012,08/25/2007,2001,08/22/2001 Influenza, Inactivated AIIV4 (Age 65+ Years) Preserv Free 06/15/2020 Influenza, Inactivated IIV3 (Age 65+ Years) Preserv Free 06/27/2017 Pneumococcal Poly,23-Valent (Pneumovax) 10/24/2012 Pneumococcal conj 13-Valent (Prevnar 13) 01/27/2016 Td (Age >=7 Years) 11/02/2019 Tdap 03/29/2009 Zoster (Zostavax-ZVL, live) 05/25/2010 Family History Medical History Relation Name Comments Asthma Child x2 No Known Problems Daughter x3 Arthritis Father hip replacement Hypertension Mother Stroke Mother Arthritis Sister No Known Problems Son x3 Relation Name Status Comments Child Daughter Alive Father (Age 90) old age Mother (Age 80) stroke Sister Son Alive Social History Tobacco Use Types Packs/Day Years Used Date Smoking Tobacco: Never Smokeless Tobacco: Never Tobacco Cessation:Counseling Given: Yes Alcohol Use Standard Drinks/Week Comments Yes 2 (1 standard drink = 0.6 oz pure alcohol) minimal, rum and coke or wine couple times a week PHQ-2 Answer Date Recorded PHQ-2 TOTAL SCORE 0 04/24/2023 Social Connections Answer Date Recorded Do you often feel lonely or isolated from those around you? 0 05/23/2024 Financial Resource Strain Answer Date R ecorded Difficulty of Paying Living Expenses 3 05/23/2024 Difficulty of Paying Living Expenses Not on file 05/23/2024 Food Insecurity Answer Date Recorded Do you worry your food will run out before you are able to buy more? 1 05/23/2024 Transportation Needs Answer Date Record ed Does lack of transportation keep you from medica l appointments? 1 05/23/2024 Does lack of transportation keep you from work, meetings or getting things that you need? 1 05/23/2024 Housing Stability Answer Date Recorded What is your housing situation today? 1 05/23/2024 Interpersonal Safety Answer Date Record ed Are you being hit, kicked, p ushed or yelled at (see row info)? No 08/08/2024 Interpersonal Safety Abuse 12 - 18 Not on file 08/08/2024 Interpersonal Safety Ambulatory Vulnerability No t on file 08/08/2024 Utilities Answer Date Recorded Do you have trouble paying f or utilities (for example, heat, electricity, water, phone)? 1 05/23/2024 Sex and Gender Information Value Date Recorded Sex Assigned at Not on file Legal Sex Male 5:23 AM PRESS SERVICE READER Gender Identity Not on file Sexual Orientation Not on file Occupation Industry Job Start Date Job End Date + Not on file Not on file Not on file Not on file Not on file Not on file Not on file Obstetrics History Last Filed Vital Signs Vital Sign Reading Time Taken Comments Blood Pressure 175/89 08/09/2024 7:31 AM PRESS SERVICE READER Pulse 76 08/09/2024 7:31 AM PRESS SERVICE READER Temperature 36.9 C (98.5 F) 08/09/2024 7:31 AM PRESS SERVICE READER Respiratory Rate 18 08/09/2024 7:31 AM PRESS SERVICE READER Oxygen Saturation 92% 08/09/2024 7:31 AM PRESS SERVICE READER Inhaled Oxygen Concentration - - Weight 108 kg (238 lb 3.2 oz) 08/09/2024 6:00 AM PRESS SERVICE READER Height 182.9 cm (6') 08/07/2024 8:23 AM CDT Body Mass Index 32.31 08/07/2024 8:23 AM CDT Plan of Treatment Health Maintenance Due Date Last Done Comments Zoster (shingles) series for age 50+ (2 of 3) 07/20/2010 05/25/2010 RSV vaccine for adults or (1 - 1-dose 75+ series) 2022 Depression screening for age 12+ 04/24/2024 04/24/2023, 03/19/2022, 03/02/2021, Additional history exists Medicare Wellness for age 65+ 04/24/2024, 03/19/2022, 02/27/2021, Additional history exists COVID-19 vaccine series ( season) 2024 Influenza for age 65+ 06/07/2024 06/15/2020 , 09/25/2019, 08/06/2018, Additional history exists BMI (ht and wt on same day) for age 18+ 08/05/2025 08/05/2024, 08/13/2023, 07/30/2023, Additional history exists Tetanus booster 11/02/2029 11/02/2019, 03/29/2009 Tdap Completed 03/29/2009 Hepatitis C screening for ag e 18-79 Completed 10/19/2013 Pneumococcal series for age 50+ Completed 6, 10/24/2012 Procedures Procedure Name Priority Date/Time Associated Diagnosis Comments ANTI HCV Routine 10/19/2013 11:01 AM PRESS SERVICE READER Routine general medical examination at a health care facility from Last 3 Months or Most Recently Relevant to Health Maintenance Results * ANTI HCV (10/19/2013 11:01 AM PRESS SERVICE READER) ANTI HCV Non-reacti ve [facility] Blood specimen (specimen) BLOOD SPECIMEN / Unknown 10/19/2013 11:01 AM PRESS SERVICE READER 10/19/2013 10:50 AM PRESS SERVICE READER us Antonio Orozco MD SEND OUTS Fin al Result [facility] INTERNAL ZIP [id number] [place] [id number] from Last 3 Months or Most Recently Relevant to Health Maintenance Insurance MEDICARE PART A HB ONLY MEDICARE PART B HB ONLY MEDICA PRIME SOLUTIONS PB ONLY MEDICA PRIME SOLUTION HB MEDICARE PART B HB ONLY [facility] [place] Advance Directives * Full Code (Latest Code Status on File) Date Activated Date Inactivated Comments 08/07/2024 8:08 AM 08/09/2024 2:37 PM Question Answer Comments Code Status Discussion: Unable to Assess Preferences, Provider to review later * Full Code Date Activated Date Inactivated Comments 02/15/2021 7:26 AM 02/15/2021 12:25 PM Question Answer Comments Code Status Discussion: Per Existing Order * Full Code Date Activated Date Inactivated Comments 03/18/2013 1:21 PM 03/19/2013 8:38 PM Care Teams Automation And Controls Supervisor Relationship Specialty Start Date End Date Taryn Villasenor MD [address] [facility] [address] [place] [address] PCP - General Internal Medicine 09/09/17 Laura Stephens MD [address] [facility] [address] [place] [address] Surgery - Urology 09/09/17
--- OUTSIDE RECORDS SUMMARY | 2024-11-18 05:28 | XMS_ITS | Continuity of Care Document ---
Author Organization [facility] Address [address] [place] [address] Care Team Providers Care Mold Sprayer Name Role Phone JESÚSRA TORIBIOJohn Primary Care Provider CHICA WILSON Primary Care Provider Assessment Encounter Date Assessment Date Assessment LastModified by Organization Details LastModified Time 11/11/2024 11/11/2024 79 year old male with a history of right renal oncocytomas, nephrolithias is, and prostate cancer. Not available 11/11/2024 08:21:03 Plan of Treatment Reminders Order Date Submit Date Provider Last Modified By Organization Details Last Modified Time Details Appointments None recorded. Lab PSA, total, serum or plasma 2024 025 [facility], [address] [facility], [place], [address], 14:18:57 Referral orthopedic surgeon referral 2024 025 [facility], [address] [place], [place], [address], 04:07:39 Procedures None recorded. Surgeries None recorded. Imaging None recorded. Medication Orders None recorded. Patient TargetsNo targets recorded. Patient Instructions Encounter Date Encounter Id Patient Instructions Last Modified By Organization Details Last Modified Time 11/11/2024 [id number] Renal oncocytomas: No evidence of recurrence. Nephrolithiasis/L ow back pain: I am not very convinced [...] will repeat his prostate specific antigen annually. Not available 11/11/2024 08:51:07 Reason for Referral Orthopedic Surgeon Referral for Low back pain Referring Physician: Antoni Jarvis, Urology, Encounter Date: 11/11/2024 Results Created Date Observation Date Name Description Value Unit Range Abnormal Flag Note LastModifiedBy Organization Detail LastModifiedTime 11/09/1911/08/2024 CT, abdom en + pelvi s, w/o contr ast No observ ation record ed. Not Available 2024 08:48:28 Result Notes None recorded. Problems Name Problem SNOMED Code Status Onset Date Resolution Date Notes Provider Name and Address Organization Details Recorded Time Renal mass 982583392 Active 2023 El Meat null, [facility] 4 08:58:19 Hypertensive disorder 02653000 Active 2023 [facility], [facility] 4 08:59:49 Coronary arterioscleros is 39403890 Active 2023 El Meat null, [facility] 4 09:00:20 Hypercholester olemia 94642443 Active 2023 El Meat null, [facility] 4 09:00:25 Polyp of colon 93176176 Active 2023 El Meat null, [facility] 4 09:00:32 Malignant tumor of prostate 770581619 Active 2023 El Meat null, [facility] 4 09:00:40 Osteoarthritis 276182176 Active 2023 El Meat null, [facility] 4 09:00:48 Problem Notes None recorded. Procedures Surgical History Date Name Laterality Status Provider Name and Address Organization Details Recorded Time 11/11/19 25 COMPLEX VISIT completed Antoni Jarvis MD [address],[facility] [address], [place], [address], [facility] 11/11/2024 08:20:59 11/11/19 25 Blood Draw/FORMING MACHINE TENDER/PSA RESULTS completed Manda Cabello [facility] 11/11/2024 08:58:25 06/24/20 24 COMPLEX VISIT completed Antoni Jarvis MD [address] [place] [address],[facility] [address], [place], [address], [facility] 06/24/2024 16:27:26 10/07/19 21 Diagnostic colonoscopy completed Not Available Health Note 05/31/2024 16:55:27 03/18/20 13 Laps surg [id number] rpbic rad completed Not Available [facility] 03/17/2020 20:40:21 11/28/19 13 Biopsy of prostate completed Not Available [facility] 03/17/2020 20:40:21 Insert epicard eltrd open completed Not Available Health Note 05/31/2024 16:55:27 Removal of prostate completed Not Available Health Note 05/31/2024 16:55:27 Prostatectomy (turp) completed Not Available Health Note 05/31/2024 16:55:27 Imaging Results None recorded. Procedure Notes None recorded. Medical Equipment None Reported. Allergies Allergen ID Allergen Name Allergen Category Reaction Reaction Severity Criticality Documentation Date Start Date Code Code System Note Provider Name and Address Organization Details Recorded Time 692256 amoxicill in medicatio n Not available Not available Not available 03/16/2020 723 RxNorm Not Available Not Available Not Available 279295 lisinopri l medicatio n Not available Not available Not available 06/18/2024 28261 RxNorm Not Available Not Available Not Available [...] No t Available Vitals Date Recorded Body height Provider Name an d Address Organization Details Last Updated DateTime 11/11/2024 180.34 [facility] Social History Question Answer Notes LastModified by Organizat ion Details LastModified Time Tobacco Smoking Status Never Smoker Not Available Health Note 05/31/2024 16:55:28 What Is Your Level Of Alcohol Consumption? None [email or web address] Information not available 06/02/2024 What Is Your Level Of Caffeine Consumption? None [email or web address] Information not available 05/31/2024 How Much Tobacco Do You Chew? None [email or web address] Information not available 05/31/2024 Do You Or Have You Ever Used E-cigarettes Or Vape? Never Used Electronic Cigarettes [email or web address] Information not available 05/31/2024 Race White [email or web address] Information n ot available 03/17/2020 Marital Status [email or web address] Informati on not available 03/17/2020 What Was [...] available 05/08 16:55:26 Medical History Condition Response High Blood Pressure Y Kidney Stones Y Lung Disease N Depression N GERD/Acid Reflux N Sexually Transmitted Infection N Cancer Y High Cholesterol N Diabetes N Bleeding Disorder N Heart Disease Y Immunizations Vaccine Type Date Status Note Provider Nam e and Address Organization Details Recorded Time influenza, unspecified formulation 9 completed El [place] null, [facility] 08/28/2024 12:09:07 zoster live 8 completed Not Available Health Note 05/31/2024 16:55:31 Influenza, adjuvanted, quadrivalent, PF 0 completed [place] null, [facility] 08/28/2024 12:09:07 pneumococcal polysaccharide PPV23 3 completed El [place] null, [facility] 08/28/2024 12:09:07 influenza, unspecified formulation 5 completed [place] null, [facility] 08/28/2024 12:09:07 Tdap 9 completed El [place] null, [facility] 08/28/2024 12:09:07 Pneumococcal conjugate PCV 13 6 completed El [place] null, [facility] 08/28/2024 12:09:07 zoster live 0 completed El [place] null, [facility] 08/28/2024 12:09:07 Influenza, high-dose, trivalent, PF 7 completed El [place] null, [facility] 08/28/2024 12:09:07 Influenza, high-dose, trivalent, PF 4 completed El [place]ath null, [facility] 08/28/2024 12:09:07 Influenza, high-dose, trivalent, PF 5 completed El [place] null, [facility] 08/28/2024 12:09:07 Influenza, high-dose, trivalent, PF 8 completed El [place]ath null, [facility] 08/28/2024 12:09:07 Influenza, high-dose, trivalent, PF 8 completed [place] null, [facility] 08/28/2024 12:09:07 Influenza, high-dose, trivalent, PF 9 completed El [place] null, [facility] 08/28/2024 12:09:07 Influenza, split virus, trivalent, preservative 7 completed El [place] null, [facility] 08/28/2024 12:09:07 Influenza, split virus, trivalent, preservative 2 completed El [place] null, [facility] 08/28/2024 12:09:07 Influenza, split virus, trivalent, PF 3 completed El [place]ath null, [facility] 08/28/2024 12:09:07 Td (adult), 2 Lf tetanus toxoid, preservative free, adsorbed 0 completed El Meat null, [facility] 08/28/2024 12:09:07 Past Encounters Encounter ID Performer Location Encounter Start Date Encounter Closed Date Diagnosis/Indication Diagnosis SNOMED-CT Code Diagnosis ICD10 Code Diagnosis Note [id number] El A[facility] [address],[facility] e [address] [place] [phone] 11/11/2024 08:40:33 11/17/2024 13:09:21 Oncocytoma of right kidney 1606013676 748086 D30.01 Kidney stone 30741182 N2 0.0 Malignant tumor of prostate 312651036 C61 Low back pain 896569310 M54.50 Health Concerns Section Related Observation LastModified by Organization Detai ls LastModified Time None Recorded Concern Status LastModified by Organization Details LastModified Time None Recorded Payers Encounter Date Sequence Insurance Name Policy Number Policy Stroud Covered Member ID Stroud Member ID Guarantor Name 11/11/2024 1 [employer] - [employer] [place] [id number] Harley Corbett [id number] Harley Corbett Jr Notes Date Note Type Note Provider Name and Address Organization Details Recorded Time 11/11/2024 text/html This is a 79 yea [...] antigen was <0.02 ng/mL (04/24/2023). El plummer [place] [facility] 11/11/2024 10:00:14
--- OUTSIDE RECORDS SUMMARY | 2024-11-18 05:28 | XMS_ITS | Encounter Summary ---
Author Organization [facility] [email or web address] [facility] Address [address] [address] Phone Care Team Providers Care Inventory Control Assistant Name Role Phone Taryn Villasenor MD Primary Care Provider [phone] Reason for Visit * Reason Comments Flank Pain Encounter Details Date Type Department Care Team (Late st Contact Info) Description 11/08/2024 10:34 AM FAST FOOD ATTENDANT - 11/08/2024 1:26 PM [facility] Emergency [facility] Emergency Department [address] [place] [id number] Gail Acosta, DO [address] [place] [address] [id number] History of renal stone (Primary Dx); Left flank pain Discharge Disposition: Home and/or Self Care Social History Tobacco Use Types Packs/Day Years Used Date Smoking Tobacco: Never Assessed EH IP Custom IPV Answer Date Recorded Do you feel UNSAFE in any of your personal relationships with your family members or any other acquaintances? Deferred 2024 Sex and Gender Information Value Date Recorded Sex Assigned at Not on file Legal Sex Male 10:29 AM FAST FOOD ATTENDANT Gender Identity Not on file Sexual Orientation Not on file documented as of this encounter Last Filed Vital Signs Vital Sign Reading Time Taken Comments Blood Pressure 165/87 11/08/2024 1:00 PM FAST FOOD ATTENDANT Pulse 62 11/08/2024 1:00 PM FAST FOOD ATTENDANT Temperature 36.5 C (97.7 F) 11/08/2024 10:33 AM FAST FOOD ATTENDANT Respiratory Rate 18 11/08/2024 1:00 PM FAST FOOD ATTENDANT Oxygen Saturation 97% 11/08/2024 1:00 PM FAST FOOD ATTENDANT Inhaled Oxygen Concentration - - Weight 110.7 kg (244 lb) 11/08/2024 10:33 AM FAST FOOD ATTENDANT Height 182.9 cm (6') 11/08/2024 10:33 AM FAST FOOD ATTENDANT Body Mass Index 33.09 11/08/2024 10:33 AM FAST FOOD ATTENDANT documented in this encounter Functional Status * Patient's Vision Adequate to Safely Complete Daily Activities Answer Date of Assessment Author Yes 11/08/2024 11:00 AM FAST FOOD ATTENDANT Viktor Lew RN * Patient's Memory Adequate to Safely Complete Daily Activities Answer Date of Assessment Author Yes 11/08/2024 11:00 AM FAST FOOD ATTENDANT Viktor Lew RN documented as of this encounter Mental Status * Patient's Judgment Adequate to Safely Complete Daily Activities Answer Entry Date Author Yes 11/08/2024 11:00 AM FAST FOOD ATTENDANT Viktor Lew RN documented in this encounter Discharge Instructions * Discharge Instructions* Gail Acosta DO - 11/08/2024 12:23 PM FAST FOOD ATTENDANT Please follow-up with your urologist this week to discuss further management of chronic renal stones. Continue taking Tylenol and ibuprofen for mild to moderate pain. You are provided a prescription for oxycodone which should be used for only severe pain and only as needed. Please avoid drinking ordriving while taking this medication. FOOD ATTENDANT FOOD ATTENDANT documented in this encounter Medications at Time of Discharge oxyCODONE (Roxicodone) 5 MG immediate release tablet Take 1 Tablet by mouth every four hours as needed for Pain. 10 Tablet 11/08/2024 1:30 PM FAST FOOD ATTENDANT 11/08/2024 documented as of this encounter Ordered Prescriptions Prescription Sig Dispense Quantity Refills Last Filled Start Date End Date oxyCODONE (Roxicodone) 5 MG immediate release tablet Take 1 Tablet by mouth every four hours as needed for Pain. 10 Tablet 11/08/2024 1:30 PM FAST FOOD ATTENDANT 11/08/2024 oxyCODONE (Roxicodone) 5 MG immediate release tablet Take 1 Tablet by mouth every four hours as needed for Pain. 10 Tablet 11/08/2024 11/08/2024 documented in this encounter Discharge Disposition Disposition Code Departure Means Destination Home and/or Self Group Home documented in this encounter ED Notes * Viktor Lew RN - 11/08/2024 12:17 PM CST Water given to pt to obtain urine sample. FOOD ATTENDANT * Viktor Lew RN - 11/08/2024 11:09 AM CST Unable to void at this time. FOOD ATTENDANT * Viktor Lew RN - 11/08/2024 11:00 AM CST Pt presents with left flank pain, has known chronic kidney stones. Does go to urologist in [place]. FOOD ATTENDANT * Gail Acosta DO - 11/08/2024 10:59 AM CST Patient: Harley Corbett Means of Arrival: Car Chief Complaint: Flank Pain History of Present Illness: HPI 79-year-old male presents for evaluation of left-sided flank pain. Reports colicky left-sided flankpain over the last few days similar to renal stones in the past. Reports passing several small stones over the last few days but has had persistent pain in the left flank since this morning describedas more severe than normal. He denies any fevers, chills, dysuria, hematuria. 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 He follows urology in [facility] with Dr. Jarvis and has a follow-up CT scan scheduled tomorrow. He resides in [place] and currently vacation in the [facility] area. Review of Systems Pertinent positive ROS stated in HPI otherwise ROS is negative Allergies Allergen Reactions Amoxicillin RASH Prior to Admission Medication List No Medications Reported Past Medical History: No past medical history on file. Past Surgical History: No past surgical history on file. Family History: No family history on file. Social History: Exam: Initial Vitals Most Recent Vitals Temp: 97.7 ??F (36.5 ??C) (11/08/24 103) Temp: 97.7 ??F (36.5 ??C) (11/08/24 103) Pulse: 57 (11/08/24 103) Pulse: 62 (11/08/24 1300) Resp: 20 (11/08/24 103) Resp: 18 (11/08/24 1300) BP: (!) 172/99 (11/08/24 103) BP: (!) 165/87 (11/08/24 1300) SpO2: 97 % (11/08/241032) SpO2: 97 % (11/08/24 1300) Weight: 110.7 kg (244 lb) (11/08/241032) Physical Exam: Physical Exam Vitals and nursing note reviewed. Constitutional: General: He is not in acute distress. Appearance: Normal appearance. HENT: Head: Normocephalic and atraumatic. Cardiovascular: Rate and Rhythm: Normal rate. Pulmonary: Effort: Pulmonary effort is normal. Abdominal: General: There is no distension. Palpations: Abdomen is soft. Tenderness: There is no abdominal tenderness. There is left CVA tenderness. There is no right CVA tenderness, guarding or rebound. Skin: General: Skin is warm and dry. Neurological: General: No focal deficit present. Mental Status: He is alert and oriented to person, place, and time. Lab Results: Results for orders placed or performed during the hospital encounter of 11/08/24 URINALYSIS, REFLEX TO CULTURE Collection Time: 11/08/24 12:38 PM Specimen: Urine CVMS Result Value Ref Range Urine Color Yellow Straw, Yellow, Michelle Urine Appearance Clear Clear Urine Specific Lerna 1.025 1.003 - 1.035 Urine pH 5.5 5.0 - 8.0 Urine Glucose Negative Negative Urine Ketones Negative Negative Urine Protein Trace Negative, Trace mg/dL Urine Nitrites Negative Negative Urine Leukocyte Esterase Negative Negative COMPREHENSIVE METABOLIC PANEL Collection Time: 11/08/24 10:58 AM Result Value Ref Range Sodium 140 134 - 143 mEq/L Potassium 4.2 3.4 - 5.1 mEq/L Chloride 111 (H) 99 - 110 mEq/L Carbon Dioxide 22 19 - 29 mEq/L Anion Gap 7.0 3.0 - 15.0 mEq/L Blood Urea Nitrogen 23 5 - 24 mg/dL Creatinine 0.97 0.70 - 1.20 mg/dL Glomerular Filtration Rate 80 >60 mL/min/1.73 m*2 Calcium 9.1 8.4 - 10.5 mg/dL Glucose 110 (H) 70 - 99 mg/dL Protein, Total 7.5 6.0 - 8.0 g/dL Albumin 3.9 3.5 - 5.0 g/dL Alkaline Phosphatase 72 40 - 150 IU/L Aspartate Aminotransferase 25 10 - 40 IU/L Alanine Aminotransferase 26 6 - 40 IU/L Bilirubin, Total 0.7 0.2 - 1.2 mg/dL HEMOGRAM/DIFFERENTIAL Collection Time: 11/08/24 10:58 AM Result Value Ref Range WBC 7.1 3.2 - 11.0 10*9/L RBC 4.71 4.14 - 5.76 10*12/L HGB 14.7 12.9 - 16.9 g/dL HCT 42.7 38.4 - 49.7 % MCV 90.7 81.4 - 99.0 fL MCH 31.2 26.7 - 33.1 pg MCHC 34.4 31.6 - 35.5 g/dL RDW 12.5 11.3 - 14.6 % PLT 207 130 - 375 10*9/L Neutrophils % 75.2 % Lymphocytes % 18.0 % Monocytes % 5.6 % Eosinophils % 0.7 % Basophils % 0.4 % Immature Granulocytes % 0.1 % Neutrophils Absolute 5.3 1.5 - 7.6 10*9/L Lymphocytes Absolute 1.3 0.8 - 3.3 10*9/L Monocytes Absolute 0.4 0.2 - 0.9 10*9/L Eosinophils Absolute 0.1 0.0 - 0.4 10*9/L Basophils Absolute 0.0 0.0 - 0.1 10*9/L Immature Granulocytes Absolute 0.01 0.00 - 0.06 10*9/L Imaging Results: Imaging Results CT ABDOMEN PELVIS WO IV CONTRAST (Final result) Result time 11/08/24 11:57:54 Final result by Justin Ritchie MD (11/08/24 11:57:54) Narrative: This document is currently in Final Status [...] Electronically Signed: Justin Ritchie 11/08/2024 11:57 AM Emergency Department Course: I independently reviewed radiology imaging and agree with radiologist report, there is no obstructing ureteral stone Medications ketorolac (Toradol) IM injection 30 mg (30 mg Intramuscular Given 11/08/24 1113) oxyCODONE (Roxicodone) immediate release tablet 5 mg (5 mg Oral Given 11/08/24 1113) Procedures: Procedures Medical Decision Making Patient is a 79-year-old male that is presenting with concerns of left flank pain. Significant pastmedical history of multiple ureteral stones requiring lithotripsy in the past. He follows urology in [facility]. Vital signs stable upon arrival. CT imaging revealed no obstructing ureteral stone or hydronephrosis. Renal function within normal limits. Remainder of blood work is grossly unremarkable and urine analysis revealed no evidence of infection. Pain seems well-tolerated on repeat evaluation and provided a short course of analgesia with oxycodone for breakthrough pain only. He does have follow-up with urology later this week. I suspect pain is residual from recently passed stones earlier this week. Encouraged return for any new or worsening symptoms and follow-up as discussed. He voiced understanding and agreement with this plan. Assessment: History of renal stone (Primary) Left flank pain Plan: Discharge Prescriptions Medication Sig Dispense Start Date End Date Auth. Provider oxyCODONE (Roxicodone) 5 MG immediate release tablet Take 1 Tablet by mouth every four hours as needed for Pain. 10 Tablet 11/08/2024 -- Gail Acosta DO Disposition: ED Disposition ED Disposition Discharge Condition Stable Comment [facility] thanks you for allowing us to assist you with your healthcare needs. This document contains patient education materials and information regarding your injury/illness. *If you need copies of your x-rays for a f ollow up appointment please call [phone] to arrangefor pear picker. If you had an IV in place during your stay, please continue to monitor the site for the next 48 hours. Report any redness, swelling, drainage, or fever to your primary care phys ician. Discharge Instructions Please follow-up with your urologist this week to discuss further management of chronic renal stones. Continue taking Tylenol and ibuprofen for mild to moderate pain. You are provided a prescription for oxycodone which should be used for only severe pain and only as needed. Please avoid drinking or driving while taking this medication. Gail Acosta DO 11/08/24 1648 FOOD ATTENDANT * Michelle Enciso RN - 11/08/2024 10:33 AM CST Known stones. Complains of left sided flank pain. FOOD ATTENDANT documented in this encounter Miscellaneous Notes * Patient Education - Gail Acosta DO - 11/08/2024 12:24 PM CST Images from the original note were not included. [id number] Kidney Stone, Passed A kidney stone (nephrolithiasis) starts as tiny crystals. They form inside the kidney where urine is made. Most kidney stones enlarge to about 1/8 to 1/4 inch in size before leaving the kidney and moving toward the bladder. The sharp, cramping pain and nausea/vomiting you had was the stone moving through the ureter. The ureter is the narrow tube joining the kidney to the bladder. Once the stone reaches your bladder, the pain stops. Pain may start again as the stone passes through the bladder and out through the urethra. There are four types of kidney stones. Most are calcium stones. They are mostly made up of calcium oxalate. But some are made with calcium phosphate. The other three types include uric acid stones, struvite stones (from a preceding infection), and rarely, cystine stones. Home care These guidelines will help you care for yourself at home: ?? Drink plenty of fluids. This increases urine flow. It also reduces the chance that a new stone will form. Healthy adults (no heart/liver/kidney disease) who have had a kidney stone should drink 128-ounce glasses of fluids per day. Most of this should be water. The goal is to produce 1.5 to 2 quarts of almost colorless urine per 24 hours. ?? Unless another NSAID (non-steroidal anti-inflammatory drug) was given, you may take ibuprofen ornaproxen. This is in addition to any narcotic pain medicine your healthcare provider prescribes. Ifyou have chronic liver or kidney disease, or ever had a stomach ulcer or digestive bleeding, talk with your healthcare provider before using these medicines. ?? Collect the stone. If you were given a strainer, urinate into a jar then pour the urine through the strainer and into the toilet. Keep doing this for 24 hours after your pain stops. Save any stonethat you find in the strainer. Bring it to your healthcare provider for analysis. Assessing the stone can help understand why it developed and how to reduce your risk for more stones. If you don't col lect a stone, a 24-hour urine specimen can be done at a later time by your healthcare provider to figure out the cause of your stone. Prevention Each year, there is a chance that a new stone will form. The risk is highest if you have a family history of kidney stones or have certain chronic illnesses such as high blood pressure, obesity, or diabetes. However, lifestyle and dietary changes can reduce the risk of getting another kidney stone. Most kidney stones are made of calcium. The following advice can help you prevent calcium stones. If you don?t know the type of stone you have, follow this advice until the healthcare provider determines the cause of your stone. Things that help: ?? The most important thing you can do is to drink plenty of fluids each day, as described above. ?? Foods such as wheat, rice, rye, barley, and beans contain phytate. Phytate is a compound that may lower the risk for getting any type of stone. ?? Eat more fruits and vegetables, especially those high in potassium. ?? Eat foods high in natural citrate, such as fruit and fruit juices (using low sugar). ?? Low calcium contributes to calcium type kidney stones. Eat a normal calcium diet and talk with your healthcare provider if you are taking calcium supplements. It may be harmful to lower your calcium intake. New research shows that eating calcium-rich and oxalate-rich foods together lowers your risk for stones. This is because eating these foods together binds the minerals in the stomach and intestines before they can reach the kidneys. ?? Limit salt intake to 2 grams (1 teaspoon) per day. Extra sodium can cause you to lose more calcium in your urine. This increases your chances of developing a stone. Use limited amounts when cooking, and don?t add salt at the table. Processed and canned foods are usually high in salt. ?? Eat fewer high-oxalate foods. These include spinach, rhubarb, peanuts, beets, cashews, almonds, grapefruit, chocolate, tea, and grapefruit juice. Or eat them with calcium-rich foods. These foods include dairy, dark leafy greens, soy products, and calcium-enriched foods. ?? Reduce the amount of animal meat and high-protein foods in your diet. This will lower your risk for uric acid stones. Animal meat and high-protein foods have high amounts of a compound called purines. Eating foods high in purines causes your body to make more uric acid. ?? Don't have extra sugar (sucrose) or fructose (sweetener in many soft drinks) in your diet. ?? If you take vitamin C as a supplement, don't take more than 1,000 milligrams (mg) per day. More than 1,000 mg per day may cause your body to make more oxalate. ?? A dietitian or your healthcare provider can give you ideas on how to change your diet to preventmore kidney stones. Follow-up care Follow up with your healthcare provider, or as advised. Even if you don't collect the kidney stone,it's possible to analyze a 24-hour urine collection for the cause of this stone. Discuss this with your healthcare provider. If you had an X-ray, CT scan, or other diagnostic test, you will be told of any findings that may affect your care. Call 911 Call 911 if you have any of these: ?? Weakness, dizziness, or fainting When to seek medical advice Call your healthcare provider right away if any of these occur: ?? Severe pain that returns and is not relieved by pain medicines ?? Repeated vomiting or unable to keep down fluids ?? Fever of 100.4??F (38??C) or higher, or as directed by your healthcare provider ?? Blood clots in urine ?? Foul smelling or cloudy urine ?? Unable to pass urine for 8 hours or increasing bladder pressure Last Reviewed Date: 2022 00:00:00 ?? [id number] [employer]. All rights reserved. This information is not intended as a substitute for professional medical care. Always follow your healthcare professional's instructions. FOOD ATTENDANT documented in this encounter Plan of Treatment Not on file documented as of this encounter Procedures Procedure Name Priority Date/Time Associated Diagnosis Comments URINALYSIS, REFLEX TO CULTURE STAT 11/08/2024 12:38 PM FAST FOOD ATTENDANT CT ABDOMEN PELVIS WO IV CONTRAST STAT 11/08/2024 11:45 AM FAST FOOD ATTENDANT HOLD LI HEPARIN STAT 11/08/2024 10:58 AM FAST FOOD ATTENDANT HOLD NA CITRATE STAT 11/08/2024 10:58 AM FAST FOOD ATTENDANT HOLD EDTA STAT 11/08/2024 10:58 AM FAST FOOD ATTENDANT HOLD SERUM TUBE STAT 11/08/2024 10:58 AM FAST FOOD ATTENDANT COMPREHENSIVE METABOLIC PANEL STAT 11/08/2024 10:58 AM FAST FOOD ATTENDANT HEMOGRAM/DIFF STAT 11/08/2024 10:58 AM FAST FOOD ATTENDANT documented in this encounter Results * URINALYSIS, REFLEX TO CULTURE (11/08/2024 12:38 PM FAST FOOD ATTENDANT) Urine Color Yellow Straw, Yellow, Michelle 11/08/2024 12:51 PM FAST FOOD ATTENDANT [facility] Urine Appearance Clear Clear 11/08/2024 12:51 PM [facility] Urine Specific Lerna 1.025 1.003 - 1.035 11/08/2024 12:51 PM [facility] Urine pH 5.5 5.0 - 8.0 11/08/2024 12:51 PM [facility] Urine Glucose Negative Negative 11/08/2024 12:51 PM [facility] Urine Ketones Negative Negative 11/08/2024 12:51 PM [facility] Urine Protein Trace Negative, Trace mg/dL 11/08/2024 12:51 PM [facility] Urine Nitrites Negative Negative 11/08/2024 12:51 PM [facility] Urine Leukocyte Esterase Negative Negative 11/08/2024 12:51 PM [facility] Urine URINE SPECIMEN COLLECTION, CLEAN CATCH / Unknown Non-blood collection / Unknown 11/08/2024 12:38 PM FAST FOOD ATTENDANT 11/08/2024 12:43 PM FAST FOOD ATTENDANT Narrative [facility] - 11/08/2024 12:51 PM FAST FOOD ATTENDANT A routine urine not reflexing to a Microscopic exam means the dipstick blood test is negative. A Urine Culture is not indicated. Gail Acosta DO EC URINE ORDERABLES Final R esult [facility] [address] [place] [address] * CT ABDOMEN PELVIS WO IV CONTRAST (11/08/2024 11:45 AM FAST FOOD ATTENDANT) Anatomical Region Laterality Modality Abdomen, Pelvis Computed Tomogra phy 11/08/2024 11:4 5 AM FAST FOOD ATTENDANT Narrative 11/08/2024 11:57 AM FAST FOOD ATTENDANT This document is currently in Final Status [...] 11/08/2024 11:57 AM us Gail Acosta DO CT ORDERABLES Final Resu lt * (ABNORMAL) COMPREHENSIVE METABOLIC PANEL (11/08/2024 10:58 AM FAST FOOD ATTENDANT) Sodium 140 134 - 143 mEq/L 11/08/2024 11:20 AM [facility] Potassium 4.2 3.4 - 5.1 mEq/L 11/08/2024 11:20 AM [facility] Chloride 111(H) 99 - 110 mEq/L 11/08/2024 11:20 AM [facility] Carbon Dioxide 22 19 - 29 mEq/L 11/08/2024 11:20 AM [facility] Anion Gap 7.0 3.0 - 15.0 mEq/L 11/08/2024 11:20 AM [facility] Blood Urea Nitrogen 23 5 - 24 mg/dL 11/08/2024 11:20 AM [facility] Creatinine 0.97 0.70 - 1.20 mg/dL 11/08/2024 11:20 AM [facility] Glomerular Filtration Rate 80 >60 mL/min/1. 73 m*2 11/08/2024 11:20 AM [facility] Comment:Risk of cardiovascul ar disease increases when GFR is abnormal; persistently reduced GFR values are a specific indication of CKD. This calculation uses CKD- EPI 2020 equation without adjustment for race; it has not been validated in women. Calcium 9.1 8.4 - 10.5 mg/dL 11/08/2024 11:20 AM [facility] Glucose 110(H) 70 - 99 mg/dL 11/08/2024 11:20 AM [facility] Protein, Total 7.5 6.0 - 8.0 g/dL 11/08/2024 11:20 AM [facility] Albumin 3.9 3.5 - 5.0 g/dL 11/08/2024 11:20 AM [facility] Alkaline Phosphatase 72 40 - 150 IU/L 11/08/2024 11:20 AM [facility] Aspartate Aminotransferase 25 10 - 40 IU/L 11/08/2024 11:20 AM [facility] Alanine Aminotransferase 26 6 - 40 IU/L 11/08/2024 11:20 AM [facility] Bilirubin, Total 0.7 0.2 - 1.2 mg/dL 11/08/2024 11:20 AM [facility] Blood BLOOD SPECIMEN / Unknown Venipuncture / Unknown 11/08/2024 10:58 AM [facility] 11/08/2024 11:03 AM [facility] Narrative [facility] - 11/08/2024 11:20 AM [facility] Current ADA criteria for Glucose: Normal: 70-99 mg/dL Impaired Fasting Glucose: 100-125 mg/dL Diabetes Mellitus: at or above 126 mg/dL The diagnosis of diabetes must be confirmed on a subsequent day by measuring Fasting Plasma Glucose, 2-hr PG or random plasma glucose (if symptoms are present). us Gail Acosta DO EC CHEMISTRY ORDERABLES Fin al Result [facility] [address] [place] [address] * HEMOGRAM/DIFFERENTIAL (11/08/2024 10:58 AM [facility]) WBC 7.1 3.2 - 11.0 10*9/L 11/08/2024 11:05 AM [facility] RBC 4.71 4.14 - 5.76 10*12/L 11/08/2024 11:05 AM [facility] HGB 14.7 12.9 - 16.9 g/dL 11/08/2024 11:05 AM [facility] HCT 42.7 38.4 - 49.7 % 11/08/2024 11:05 AM [facility] MCV 90.7 81.4 - 99.0 fL 11/08/2024 11:05 AM [facility] MCH 31.2 26.7 - 33.1 pg 11/08/2024 11:05 AM [facility] MCHC 34.4 31.6 - 35.5 g/dL 11/08/2024 11:05 AM [facility] RDW 12.5 11.3 - 14.6 % 11/08/2024 11:05 AM [facility] PLT 207 130 - 375 10*9/L 11/08/2024 11:05 AM [facility] Neutrophils % 75.2 % 11/08/2024 11:05 AM [facility] Lymphocytes % 18.0 % 11/08/2024 11:05 AM [facility] Monocytes % 5.6 % 11/08/2024 11:05 AM [facility] Eosinophils % 0.7 % 11/08/2024 11:05 AM [facility] Basophils % 0.4 % 11/08/2024 11:05 AM [facility] Immature Granulocytes % 0.1 % 11/08/2024 11:05 AM [facility] Neutrophils Absolute 5.3 1.5 - 7.6 10*9/L 11/08/2024 11:05 AM [facility] Lymphocytes Absolute 1.3 0.8 - 3.3 10*9/L 11/08/2024 11:05 AM [facility] Monocytes Absolute 0.4 0.2 - 0.9 10*9/L 11/08/2024 11:05 AM [facility] LABORATORY Eosinophils Absolute 0.1 0.0 - 0.4 10*9/L 11/08/2024 11:05 AM [facility] Basophils Absolute 0.0 0.0 - 0.1 10*9/L 11/08/2024 11:05 AM [facility] Immature Granulocytes Absolute 0.01 0.00 - 0.06 10*9/L 11/08/2024 11:05 AM [facility] Blood BLOOD SPECIMEN / Unknown Venipuncture / Unknown 11/08/2024 10:58 AM [facility] 11/08/2024 11:03 AM [facility] us Gail Acosta DO EC HEMATOLOGY ORDERABLES Fi nal Result [facility] [address] * HOLD SERUM TUBE (11/08/2024 10:58 AM FAST FOOD ATTENDANT) Blood BLOOD SPECIMEN / Unknown Venipuncture / Unknown 11/08/2024 10:58 AM FAST FOOD ATTENDANT 11/08/2024 11:03 AM FAST FOOD ATTENDANT us Gail A Dave DO EC CHEMISTRY ORDERABLES Fin al Result Performing Organization Address [facility] Phone Number [facility] [address] [place] [address] * HOLD NA CITRATE (11/08/2024 10:58 AM FAST FOOD ATTENDANT) Blood BLOOD SPECIMEN / Unknown Venipuncture / Unknown 11/08/2024 10:58 AM FAST FOOD ATTENDANT 11/08/2024 11:03 AM FAST FOOD ATTENDANT us Gail A Dave DO EC HEMATOLOGY ORDERABLES Fi nal Result Performing Organization Address [facility] Phone Number [facility] [address] [place] [address] * HOLD PURPLE TUBE (11/08/2024 10:58 AM FAST FOOD ATTENDANT) Blood BLOOD SPECIMEN / Unknown Venipuncture / Unknown 11/08/2024 10:58 AM FAST FOOD ATTENDANT 11/08/2024 11:03 AM FAST FOOD ATTENDANT us Gail A Dave DO EC HEMATOLOGY ORDERABLES Fi nal Result Performing Organization Address [facility] Phone Number [facility] [address] [place] [address] * HOLD LI HEPARIN (11/08/2024 10:58 AM FAST FOOD ATTENDANT) Blood BLOOD SPECIMEN / Unknown Venipuncture / Unknown 11/08/2024 10:58 AM FAST FOOD ATTENDANT 11/08/2024 11:03 AM FAST FOOD ATTENDANT us Gail A Dave DO EC CHEMISTRY ORDERABLES Fin al Result Performing Organization Address [facility] Phone Number [facility] [address] [place] [address] documented in this encounter Visit Diagnoses Diagnosis History of renal stone- Primary Personal history of urinary calculi Left flank pain Abdominal pain, unspecified site documented in this encounter Administered Medications Inactive Administered Medications Medication Order MAR Action Action Date Dose Rate Site ketorolac (Toradol) IM injection 30 mg 30 mg, Intramuscular, ONCE, 1 dose, On 11/08/24 at 1100 Given 11/08/2024 11:13 AM FAST FOOD ATTENDANT 30 mg Right Deltoid oxyCODONE (Roxicodone) immediate release tablet 5 mg 5 mg, Oral, ONCE, 1 dose, On 11/08/24 at 1100 Given 11/08/2024 11:13 AM FAST FOOD ATTENDANT 5 mg documented in this encounter Discontinued Medications Medication Sig Discontinue Reason Start Date End Da te oxyCODONE (Roxicodone) 5 MG immediate release tablet Take 1 Tablet by mouth every four hours as needed for Pain. 11/08/2024 11/08/2024 documented as of this encounter Active and Recently Administered Medications Times are shown in FAST FOOD ATTENDANT. Scheduled Medication Order 11/06/2024 11/07/2024 11/08/2024 ketorolac (Toradol) IM injection 30 mg (COMPLETED) 30 mg, Intramuscular, ONCE, 1 dose, On 11/08/24 at 1100 1113 (Given - Provid er: Viktor Lew RN) oxyCODONE (Roxicodone) immediate release tablet 5 mg (COMPLETED) 5 mg, Oral, ONCE, 1 dose, On 11/08/24 at 1100 1113 (Given - Provid er: Viktor Lew RN) documented in this encounter Care Teams Inventory Control Assistant Relationship Specialty Start Date End Date Taryn Villasenor MD [address] [place] [address] [place] [id number] PCP - General Internal Medicine 11/08/24 documented as of this encounter
[2024-11-18 05:29] VITALS: BP 185/109; PULSE 64; RESP 16; TEMP 35.9; O2SAT 97; BMI 32.5
--- NOTE | 2024-11-18 05:50 | ED.GENADULT ---
HPI - General Adult General Chief complaint: Back Injury/Pain Stated complaint: back pain Time Seen by Provider: 11/18/24 05:50 History of Present Illness HPI narrative: pt reports pain in left flank?for 3 weeks. Pt has a MRI at 0815, but is afraid he won' t be able to stay still for it. Pain was a 8/10 before he took his oxycodone before coming in. Current pain level is 3 -4/10. 79-year-old man presenting to the emergency department concern of left flank area pain over the last few weeks. Intense sharp pain radiates down the outside of his left leg then stops at his knee. Has not until now managed the settle is pain over the last few weeks per. And follow-up in clinic with Dr. Chase on the . Has just finished his steroid course; looks like was a Medrol Dosepak. Had 1 remaining tab of oxycodone from original prescription from 2 or 3 weeks ago with initial evaluation in what sounds like [facility] emergency department. He had been saving this tab of oxycodone and just took the last 1 about an hour or an hour and half before arrival in the emergency department. Is finally feeling a little bit better but he is anxious about the next days to weeks due to this increased pain. Not with specific weakness. Related Data Home Medications ?Medication ?Instructions ?Recorded ?Confirmed amlodipine 5 mg tablet 5 mg PO DAILY 11/13/24 11/13/24 aspirin 81 mg tablet,delayed 81 mg PO QDAY 11/13/24 11/13/24 release atorvastatin 80 mg tablet 80 mg PO DAILY 11/13/24 11/13/24 nitroglycerin 0.4 mg sublingual mg sublingual 11/13/24 11/13/24 tablet oxycodone 5 mg tablet 5 mg PO 11/13/24 11/13/24 Previous Rx's ?Medication ?Instructions ?Recorded methylprednisolone 4 mg tablets in See Rx Instructions PO PER PKG DIR 11/13/24 a dose pack (Medrol (Blake)) #21 ea Allergies Allergy/AdvReac Type Severity Reaction Status Date / Time amoxicillin Allergy Verified 11/13/24 10:50 lisinopril Allergy Verified 11/13/24 10:50 Review of Systems Status of ROS: Reports: 6 or more systems reviewed and unremarkable except as noted in History and below [facility] Medical History Renal mass, right ?N28.89 - Other specified disorders of kidney and ureter (ICD-10) Bilateral kidney stones ?N20.0 - Calculus of kidney (ICD-10) Atrial fibrillation ?I48.91 - Unspecified atrial fibrillation (ICD-10) Partial Achilles tendon tear ?S86.019A - Strain of unspecified Achilles tendon, initial encounter (ICD-10) Hyperlipidemia ?E78.5 - Hyperlipidemia, unspecified (ICD-10) Calculus of kidney ?N20.0 - Calculus of kidney (ICD-10) Rectal irritation ?K62.89 - Other specified diseases of anus and rectum (ICD-10) NSTEMI (non-ST elevated myocardial infarction) ?I21.4 - Non-ST elevation (NSTEMI) myocardial infarction (ICD-10) RI (myocardial infarction) ?I21.9 - Acute myocardial infarction, unspecified (ICD-10) Pain in left ankle ?M25.572 - Pain in left ankle and joints of left foot (ICD-10) COVID-19 virus infection ?U07.1 - COVID-19 (ICD-10) Rosacea ?L71.9 - Rosacea, unspecified (ICD-10) Prepatellar bursitis of left knee ?M70.42 - Prepatellar bursitis, left knee (ICD-10) Primary osteoarthritis involving multiple joints ?M15.0 - Primary generalized (osteo)arthritis (ICD-10) Prostate cancer ?C61 - Malignant neoplasm of prostate (ICD-10) Personal history of colonic polyps ?Z86.0100 - Personal history of colon polyps, unspecified (ICD-10) Obesity, unspecified ?E66.9 - Obesity, unspecified (ICD-10) Pure hypercholesterolemia ?E78.00 - Pure hypercholesterolemia, unspecified (ICD-10) Dermatitis ?L30.9 - Dermatitis, unspecified (ICD-10) Coronary artery disease ?I25.10 - Atherosclerotic heart disease of [place] coronary artery without angina pectoris (ICD-10) LVH (left ventricular hypertrophy) due to hypertensive disease ?I11.9 - Hypertensive heart disease without heart failure (ICD-10) Hypertension ?I10 - Essential (primary) hypertension (ICD-10) Surgical History History of kidney surgery (~06/2024) ?Z98.890 - Other specified postprocedural states (ICD-10) S/P right knee arthroscopy ?Z98.890 - Other specified postprocedural states (ICD-10) H/O prostatectomy ?Z90.79 - Acquired absence of other genital organ(s) (ICD-10) H/O left knee surgery (07/12/23) ?Z98.890 - Other specified postprocedural states (ICD-10) History of nephrectomy, right ?Z90.5 - Acquired absence of kidney (ICD-10) Social History Non-prescribed substance use: denies use Exam Narrative: Exam Narrative: Lying on his left side on the exam bed with thighs and knees slightly flexed Slightly tremoring. Clearly uncomfortable. Breathing easily. Speaking methodically. Somewhat sore to palpation in the left buttock and upper thigh area. No apparent loss of sensation. Const: Vital Signs, click to edit/add: Vital Signs - 24 hr 11/18/24 05:29 Temperature 96.7 F L Pulse Rate [Left P ulse Oximeter] 64 Respiratory Rate 16 Blood Pressure [Ri ght Upper Arm] 185/109 H Pulse Oximetry 97 Oxygen Delivery Me thod Room Air Documenting provider has reviewed patient's vital signs: yes Course Vital Signs Vital signs: Initial Vital Signs Temperature 96.7 F L 11/18/24 05:29 Temperature Source Temporal Artery Scan 11/18/24 05:29 Pulse Rate 64 11/18/24 05:29 Pulse Rhythm Regular 11/18/24 05:29 Respiratory Rate 16 11/18/24 05:29 Blood Pressure 185/109 H 11/18/24 05:29 Blood Pressure Mean 134 H 11/18/24 05:29 Blood Pressure Position Sitting 11/18/24 05:29 Pulse Oximetry 97 11/18/24 05:29 Oxygen Delivery Method Room Air 11/18/24 05:29 Vital Signs Temperature 96.7 F L 11/18/24 05:29 Pulse Rate 64 11/18/24 05:29 Respiratory Rate 16 11/18/24 05:29 Blood Pressure 185/109 H 11/18/24 05:29 Pulse Oximetry 97 11/18/24 05:29 Oxygen Delivery Method Room Air 11/18/24 05:29 Temperature 96.7 F L 11/18/24 05:29 Pulse Rate 64 11/18/24 05:29 Respiratory Rate 16 11/18/24 05:29 Blood Pressure 185/109 H 11/18/24 05:29 Pulse Oximetry 97 11/18/24 05:29 Oxygen Delivery Method Room Air 11/18/24 05:29 Medical Decision Making MDM Narrative Medical decision making narrative: Has already suspected radicular pain. Unclear whether this is ?sciatica? or more specifically lumbar impingement. No new injury described. Pending MRI in a few hours. Seems to need better pain control. No red flag symptoms otherwise. I would offer more pain medication. He is aware of side effects. He does have follow-up pending. Might benefit from no other pulse of steroid with preference for prednisone. 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 See patient discharge plan for further discussion Temporarily and maybe with a little food can take up to 800 mg of ibuprofen per dose. Alternative to the ibuprofen might be up to 500 mg naproxen 2 times daily. Also can take up to 1000 mg of acetaminophen per dose. Do not take ibuprofen or naproxen at the same time dosing but ibuprofen or naproxen can be combined with acetaminophen. Prescribing more oxycodone in the form of Percocet from [facility]. Remember that each tablet of Percocet contains 325 mg of acetaminophen. On the days that you take oxycodone in some form, you might want to take senna containing product for your bowels. Be sure to stay well-hydrated. Also prescribing cyclobenzaprine as a ?muscle relaxer?. It also is a medicine that can make you tired. If you like I have also prescribed prednisone. It sounds like you are coming to the end of a Medrol Dosepak. Often I find prednisone more effective. Medical Records Medical records reviewed: Yes I reviewed the patient's medical records Discharge Plan Discharge Clinical Impression: Radiculopathy Patient Disposition: Home w/ Parent or Adult Condition: Stable Additional Instructions: Temporarily and maybe with a little food can take up to 800 mg of ibuprofen per dose. Alternative to the ibuprofen might be up to 500 mg naproxen 2 times daily. Also can take up to 1000 mg of acetaminophen per dose. Do not take ibuprofen or naproxen at the same time dosing but ibuprofen or naproxen can be combined with acetaminophen. Prescribing more oxycodone in the form of Percocet from [facility]. Remember that each tablet of Percocet contains 325 mg of acetaminophen. On the days that you take oxycodone in some form, you might want to take senna containing product for your bowels. Be sure to stay well-hydrated. Also prescribing cyclobenzaprine as a ?muscle relaxer?. It also is a medicine that can make you tired. If you like I have also prescribed prednisone. It sounds like you are coming to the end of a Medrol Dosepak. Often I find prednisone more effective. Prescriptions: No Action amlodipine 5 mg tablet 5 mg PO DAILY atorvastatin 80 mg tablet 80 mg PO DAILY nitroglycerin 0.4 mg tablet, sublingual sublingual oxycodone 5 mg tablet 5 mg PO Patient Comments: [NO ORIGINAL SIG] aspirin 81 mg tablet,delayed release (DR/EC) 81 mg PO QDAY methylprednisolone [Medrol (Blake)] 4 mg tablets,dose pack See Rx Instructions PO PER PKG DIR Qty: 21 0RF Rx Instructions: PO PER PKG DIR Follow Up/Referrals: Taryn Villasenor MD [Primary Care Provider] - Stand Alone Forms: [employer]ator Info Instructions
--- OUTSIDE RECORDS SUMMARY | 2024-11-18 06:17 | XMS_ITS | Encounter Summary ---
Author Organization [facility] [employer] [facility] Address [address] [address] Phone Care Team Providers Care Biomedical Engineering Aide Name Role Phone Taryn Villasenor MD Primary Care Provider [phone] Reason for Visit * Reason Comments Flank Pain Encounter Details Date Type Department Care Team (Late st Contact Info) Description 11/08/2024 10:34 AM PLASTICS SCIENTIST - 11/08/2024 1:26 PM [facility] Emergency [facility] Emergency Department [address] [place] [id number] Gail Acosta, DO [address] [place] [address] [id number] History of renal stone (Primary Dx); Left [...] on file Legal Sex Male 10:29 AM PLASTICS SCIENTIST Gender Identity Not on file Sexual Orientation Not on file documented as of this encounter Last Filed Vital Signs Vital Sign Reading Time Taken Comments Blood Pressure 165/87 11/08/2024 1:00 PM PLASTICS SCIENTIST Pulse 62 11/08/2024 1:00 PM PLASTICS SCIENTIST Temperature 36.5 C (97.7 F) 11/08/2024 10:33 AM PLASTICS SCIENTIST Respiratory Rate 18 11/08/2024 1:00 PM PLASTICS SCIENTIST Oxygen Saturation 97% 11/08/2024 1:00 PM PLASTICS SCIENTIST Inhaled Oxygen Concentration - - Weight 110.7 kg (244 lb) 11/08/2024 10:33 AM PLASTICS SCIENTIST Height 182.9 cm (6') 11/08/2024 10:33 AM PLASTICS SCIENTIST Body Mass Index 33.09 11/08/2024 10:33 AM PLASTICS SCIENTIST documented in this encounter Functional Status * Patient's Vision Adequate to Safely Complete Daily Activities Answer Date of Assessment Author Yes 11/08/2024 11:00 AM PLASTICS SCIENTIST Viktor Lew RN * Patient's Memory Adequate to Safely Complete Daily Activities Answer Date of Assessment Author Yes 11/08/2024 11:00 AM PLASTICS SCIENTIST Viktor Lew RN documented as of this encounter Mental Status * Patient's Judgment Adequate to Safely Complete Daily Activities Answer Entry Date Author Yes 11/08/2024 11:00 AM PLASTICS SCIENTIST Viktor Lew RN documented in this encounter Discharge Instructions * Discharge Instructions* Gail Acosta DO - 11/08/2024 12:23 PM PLASTICS SCIENTIST Please follow-up with your urologist this week to discuss further management of chronic renal stones. Continue taking Tylenol and ibuprofen for mild to moderate pain. You are provided a prescription for oxycodone which should be used for only severe pain and only as needed. Please avoid drinking ordriving while taking this medication. TICS SCIENTIST TICS SCIENTIST documented in this encounter Medications at Time of Discharge oxyCODONE (Roxicodone) 5 MG immediate release tablet Take 1 Tablet by mouth every four hours as needed for Pain. 10 Tablet 11/08/2024 1:30 PM PLASTICS SCIENTIST 11/08/2024 documented as of this encounter Ordered Prescriptions Prescription Sig Dispense Quantity Refills Last Filled Start Date End Date oxyCODONE (Roxicodone) 5 MG immediate release tablet Take 1 Tablet by mouth every four hours as needed for Pain. 10 Tablet 11/08/2024 1:30 PM PLASTICS SCIENTIST 11/08/2024 oxyCODONE (Roxicodone) 5 MG immediate release tablet Take 1 Tablet by mouth every four hours as needed for Pain. 10 Tablet 11/08/2024 11/08/2024 documented in this encounter Discharge Disposition Disposition Code Departure Means Destination Home and/or Self [facility] documented in this encounter ED Notes * Viktor Lew RN - 11/08/2024 12:17 PM CST Water given to pt to obtain urine sample. TICS SCIENTIST * Viktor Lew RN - 11/08/2024 11:09 AM CST Unable to void at this time. TICS SCIENTIST * Viktor Lew RN - 11/08/2024 11:00 AM CST Pt presents with left flank pain, has known chronic kidney stones. Does go to urologist in [place]. TICS SCIENTIST * Gail Acosta DO - 11/08/2024 10:59 [...] in June 2024. He follows urology in [facility] with Dr. Jarvis and has a follow-up CT scan scheduled tomorrow. He resides in [place] and currently vacation in the [facility] area. Review of Systems Pertinent positive [...] Michelle Urine Appearance Clear Clear Urine Specific Walden 1.025 1.003 - 1.035 Urine pH 5.5 [...] in the past. He follows urology in [facility]. Vital signs stable upon arrival. CT imaging [...] Disposition ED Disposition Discharge Condition Stable Comment [facility] thanks you for allowing us to assist you with your healthcare needs. This document contains patient education materials and information regarding your injury/illness. *If you need copies of your x-rays for a f ollow up appointment please call [phone] to arrangefor bean picker machine operator. If you had an IV in place [...] this medication. Gail Acosta DO 11/08/24 1648 TICS SCIENTIST * Michelle Enciso RN - 11/08/2024 10:33 AM CST Known stones. Complains of left sided flank pain. TICS SCIENTIST documented in this encounter Miscellaneous Notes * Patient Education - Gail Acosta DO - 11/08/2024 12:24 PM CST Images from the original note were not included. [id number] Kidney Stone, Passed A kidney stone (nephrolithiasis) [...] pressure Last Reviewed Date: 2022 00:00:00 ?? [id number] [employer]. All rights reserved. This information is not intended as a substitute for professional medical care. Always follow your healthcare professional's instructions. TICS SCIENTIST documented in this encounter Plan of Treatment Not on file documented as of this encounter Procedures Procedure Name Priority Date/Time Associated Diagnosis Comments URINALYSIS, REFLEX TO CULTURE STAT 11/08/2024 12:[address] ABDOMEN PELVIS WO IV CONTRAST STAT 11/08/2024 11:45 AM PLASTICS SCIENTIST HOLD LI HEPARIN STAT 11/08/2024 10:58 AM PLASTICS SCIENTIST HOLD NA CITRATE STAT 11/08/2024 10:58 AM PLASTICS SCIENTIST HOLD EDTA STAT 11/08/2024 10:58 AM PLASTICS SCIENTIST HOLD SERUM TUBE STAT 11/08/2024 10:58 AM PLASTICS SCIENTIST COMPREHENSIVE METABOLIC PANEL STAT 11/08/2024 10:58 AM PLASTICS SCIENTIST HEMOGRAM/DIFF STAT 11/08/2024 10:58 AM PLASTICS SCIENTIST documented in this encounter Results * URINALYSIS, REFLEX TO CULTURE (11/08/2024 12:38 PM PLASTICS SCIENTIST) Urine Color Yellow Straw, Yellow, Michelle 11/08/2024 12:51 PM PLASTICS SCIENTIST [facility] Urine Appearance Clear Clear 11/08/2024 12:51 PM [facility] Urine Specific Walden 1.025 1.003 - 1.035 11/08/2024 12:51 PM [facility] Urine pH 5.5 5.0 - 8.0 11/08/2024 12:51 PM [facility] Urine Glucose Negative Negative 11/08/2024 12:51 PM [facility] Urine Ketones Negative Negative 11/08/2024 12:51 PM [facility] Urine Protein Trace Negative, Trace mg/dL 11/08/2024 12:51 PM [facility] Urine Nitrites Negative Negative 11/08/2024 12:51 PM [facility] Urine Leukocyte Esterase Negative Negative 11/08/2024 12:51 PM [facility] Urine URINE SPECIMEN COLLECTION, CLEAN CATCH / Unknown Non-blood collection / Unknown 11/08/2024 12:38 PM PLASTICS SCIENTIST 11/08/2024 12:43 PM PLASTICS SCIENTIST Narrative [facility] - 11/08/2024 12:51 PM PLASTICS SCIENTIST A routine urine not reflexing to a Microscopic exam means the dipstick blood test is negative. A Urine Culture is not indicated. Gail Acosta DO EC URINE ORDERABLES Final R esult [facility] [address] [place] [address] * CT ABDOMEN PELVIS WO IV CONTRAST (11/08/2024 11:45 AM PLASTICS SCIENTIST) Anatomical Region Laterality Modality Abdomen, Pelvis Computed Tomogra phy 11/08/2024 11:4 5 AM PLASTICS SCIENTIST Narrative 11/08/2024 11:57 AM PLASTICS SCIENTIST This document is currently in Final Status [...] (ABNORMAL) COMPREHENSIVE METABOLIC PANEL (11/08/2024 10:58 AM PLASTICS SCIENTIST) Sodium 140 134 - 143 mEq/L 11/08/2024 11:20 AM [facility] Potassium 4.2 3.4 - 5.1 mEq/L 11/08/2024 11:20 AM [facility] Chloride 111(H) 99 - 110 mEq/L 11/08/2024 11:20 AM [facility] Carbon Dioxide 22 19 - 29 mEq/L 11/08/2024 11:20 AM [facility] Anion Gap 7.0 3.0 - 15.0 mEq/L 11/08/2024 11:20 AM [facility] Blood Urea Nitrogen 23 5 - 24 mg/dL 11/08/2024 11:20 AM [facility] Creatinine 0.97 0.70 - 1.20 mg/dL 11/08/2024 11:20 AM [facility] Glomerular Filtration Rate 80 >60 mL/min/1. 73 m*2 11/08/2024 11:20 AM [facility] Comment:Risk of cardiovascul ar disease increases when GFR is abnormal; persistently reduced GFR values are a specific indication of CKD. This calculation uses CKD- EPI 2020 equation without adjustment for race; it has not been validated in women. Calcium 9.1 8.4 - 10.5 mg/dL 11/08/2024 11:20 AM [facility] Glucose 110(H) 70 - 99 mg/dL 11/08/2024 11:20 AM [facility] Protein, Total 7.5 6.0 - 8.0 g/dL 11/08/2024 11:20 AM [facility] Albumin 3.9 3.5 - 5.0 g/dL 11/08/2024 11:20 AM [facility] Alkaline Phosphatase 72 40 - 150 IU/L 11/08/2024 11:20 AM [facility] Aspartate Aminotransferase 25 10 - 40 IU/L 11/08/2024 11:20 AM [facility] Alanine Aminotransferase 26 6 - 40 IU/L 11/08/2024 11:20 AM [facility] Bilirubin, Total 0.7 0.2 - 1.2 mg/dL 11/08/2024 11:20 AM [facility] Blood BLOOD SPECIMEN / Unknown Venipuncture / Unknown 11/08/2024 10:58 AM [facility] 11/08/2024 11:03 AM [facility] Narrative [facility] - 11/08/2024 11:20 AM [facility] Current ADA criteria for Glucose: Normal: 70-99 mg/dL Impaired Fasting Glucose: 100-125 mg/dL Diabetes Mellitus: at or above 126 mg/dL The diagnosis of diabetes must be confirmed on a subsequent day by measuring Fasting Plasma Glucose, 2-hr PG or random plasma glucose (if symptoms are present). us Gail Acosta DO EC CHEMISTRY ORDERABLES Fin al Result [facility] [address] [place] [address] * HEMOGRAM/DIFFERENTIAL (11/08/2024 10:58 AM [facility]) WBC 7.1 3.2 - 11.0 10*9/L 11/08/2024 11:05 AM [facility] RBC 4.71 4.14 - 5.76 10*12/L 11/08/2024 11:05 AM [facility] HGB 14.7 12.9 - 16.9 g/dL 11/08/2024 11:05 AM [facility] HCT 42.7 38.4 - 49.7 % 11/08/2024 11:05 AM [facility] MCV 90.7 81.4 - 99.0 fL 11/08/2024 11:05 AM [facility] MCH 31.2 26.7 - 33.1 pg 11/08/2024 11:05 AM [facility] MCHC 34.4 31.6 - 35.5 g/dL 11/08/2024 11:05 AM [facility] RDW 12.5 11.3 - 14.6 % 11/08/2024 11:05 AM [facility] PLT 207 130 - 375 10*9/L 11/08/2024 11:05 AM [facility] Neutrophils % 75.2 % 11/08/2024 11:05 AM [facility] Lymphocytes % 18.0 % 11/08/2024 11:05 AM [facility] Monocytes % 5.6 % 11/08/2024 11:05 AM [facility] Eosinophils % 0.7 % 11/08/2024 11:05 AM [facility] Basophils % 0.4 % 11/08/2024 11:05 AM [facility] Immature Granulocytes % 0.1 % 11/08/2024 11:05 AM [facility] Neutrophils Absolute 5.3 1.5 - 7.6 10*9/L 11/08/2024 11:05 AM [facility] Lymphocytes Absolute 1.3 0.8 - 3.3 10*9/L 11/08/2024 11:05 AM [facility] Monocytes Absolute 0.4 0.2 - 0.9 10*9/L 11/08/2024 11:05 AM [facility] Eosinophils Absolute 0.1 0.0 - 0.4 10*9/L 11/08/2024 11:05 AM [facility] Basophils Absolute 0.0 0.0 - 0.1 10*9/L 11/08/2024 11:05 AM [facility] Immature Granulocytes Absolute 0.01 0.00 - 0.06 10*9/L 11/08/2024 11:05 AM [facility] Blood BLOOD SPECIMEN / Unknown Venipuncture / Unknown 11/08/2024 10:58 AM [facility] 11/08/2024 11:03 AM [facility] us Gail Acosta DO EC HEMATOLOGY ORDERABLES Fi nal Result [facility] [address] * HOLD SERUM TUBE (11/08/2024 10:58 AM PLASTICS SCIENTIST) Blood BLOOD SPECIMEN / Unknown Venipuncture / Unknown 11/08/2024 10:58 AM PLASTICS SCIENTIST 11/08/2024 11:03 AM PLASTICS SCIENTIST us Gail A Dave DO EC CHEMISTRY ORDERABLES Fin al Result Performing Organization Address [facility] Phone Number [facility] [address] [place] [address] * HOLD NA CITRATE (11/08/2024 10:58 AM PLASTICS SCIENTIST) Blood BLOOD SPECIMEN / Unknown Venipuncture / Unknown 11/08/2024 10:58 AM PLASTICS SCIENTIST 11/08/2024 11:03 AM PLASTICS SCIENTIST us Gail A Dave DO EC HEMATOLOGY ORDERABLES Fi nal Result Performing Organization Address [facility] Phone Number [facility] [address] [place] [address] * HOLD PURPLE TUBE (11/08/2024 10:58 AM PLASTICS SCIENTIST) Blood BLOOD SPECIMEN / Unknown Venipuncture / Unknown 11/08/2024 10:58 AM PLASTICS SCIENTIST 11/08/2024 11:03 AM PLASTICS SCIENTIST us Gail A Dave DO EC HEMATOLOGY ORDERABLES Fi nal Result Performing Organization Address [facility] Phone Number [facility] [address] [place] [address] * HOLD LI HEPARIN (11/08/2024 10:58 AM PLASTICS SCIENTIST) Blood BLOOD SPECIMEN / Unknown Venipuncture / Unknown 11/08/2024 10:58 AM PLASTICS SCIENTIST 11/08/2024 11:03 AM PLASTICS SCIENTIST us Gail A Dave DO EC CHEMISTRY ORDERABLES Fin al Result Performing Organization Address [facility] Phone Number [facility] [address] [place] [address] documented in this encounter Visit Diagnoses Diagnosis History of renal stone- Primary Personal history of urinary calculi Left flank pain Abdominal pain, unspecified site documented in this encounter Administered Medications Inactive Administered Medications Medication Order MAR Action Action Date Dose Rate Site ketorolac (Toradol) IM injection 30 mg 30 mg, Intramuscular, ONCE, 1 dose, On 11/08/24 at 1100 Given 11/08/2024 11:13 AM PLASTICS SCIENTIST 30 mg Right Deltoid oxyCODONE (Roxicodone) immediate release tablet 5 mg 5 mg, Oral, ONCE, 1 dose, On 11/08/24 at 1100 Given 11/08/2024 11:13 AM PLASTICS SCIENTIST 5 mg documented in this encounter Discontinued Medications Medication Sig Discontinue Reason Start Date End Da te oxyCODONE (Roxicodone) 5 MG immediate release tablet Take 1 Tablet by mouth every four hours as needed for Pain. 11/08/2024 11/08/2024 documented as of this encounter Active and Recently Administered Medications Times are shown in PLASTICS SCIENTIST. Scheduled Medication Order 11/06/2024 11/07/2024 11/08/2024 ketorolac (Toradol) IM injection 30 mg (COMPLETED) 30 mg, Intramuscular, ONCE, 1 dose, On 11/08/24 at 1100 1113 (Given - Provid er: Viktor Lew RN) oxyCODONE (Roxicodone) immediate release tablet 5 mg (COMPLETED) 5 mg, Oral, ONCE, 1 dose, On 11/08/24 at 1100 1113 (Given - Provid er: Viktor Lew RN) documented in this encounter Care Teams Biomedical Engineering Aide Relationship Specialty Start Date End Date Taryn Villasenor MD [address] [place] [address] [place] [address] PCP - General Internal Medicine 11/08/24 documented as of this encounter
--- OUTSIDE RECORDS SUMMARY | 2024-11-18 06:17 | XMS_ITS | Clinical Summary ---
Author Organization [facility] Address [address] [place] [address] Care Team Providers Care Certified Nursing Assistant Instructor Name Role Phone Unavailable Primary Care Provider [...] for each transition of care or referral. [employer] Medications sulfamethoxazol e-trimethoprim (BACTRIM DS) 800-160 MG [...] patient's age to complete this topic Insurance [employer]
--- OUTSIDE RECORDS SUMMARY | 2024-11-18 06:17 | XMS_ITS | Clinical Summary ---
Author Organization [facility] Address [address] [place] [id number] Care Team Providers Care Transcribing Machine Mechanic Name Role Phone Taryn Villalobos Primary Care Provider Allergies Active Allergy Reactions Criticality Noted Date [...] Basic metabolic panel (07/13/2023 6:49 AM CDT) [facility] Signature Sodium 139 135 - 145 [...] - BLOOD ORDERABLES F inal Result LABORATORY [facility] [address] [facility] (1st floor, no room number) [place] [address], [facility] [phone] from Last 3 Months or Most Recently Relevant to Health Maintenance Insurance [employer] MEDICARE [employer]UTION MEDICARE Advance Directives For more information, please contact: [phone] * Full Code (Latest Code Status on File) Date Activated Date Inactivated Comments 07/09/2023 10:11 PM 07/13/2023 4:37 PM All basic a nd advanced life-sustaining interventions are performed as appropriate Question Answer Comments Code status determined by: Discussion with joseline nt/ legal decision maker Care Teams Transcribing Machine Mechanic Relationship Specialty Start Date End Date Taryn Villalobos [address] [facility] [place] [id number] PCP - General Internal Medicine 07/09/23
--- OUTSIDE RECORDS SUMMARY | 2024-11-18 06:17 | XMS_ITS | Encounter Summary ---
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
--- OUTSIDE RECORDS SUMMARY | 2024-11-18 06:17 | XMS_ITS | Clinical Summary ---
Author Organization [facility] Address [address] [address] Phone Care Team Providers Care Teacher Asst Name Role Phone Taryn Villasenor MD Primary Care Provider [phone] Allergies Active Allergy Reactions Criticality Noted Date Comments Amoxicillin RASH Medium 11/08/2024 Medications oxyCODONE (Roxicodone) 5 MG immediate release tablet Take 1 Tablet by mouth every four hours as needed for Pain. 10 Tablet 11/08/2024 1:30 PM [facility] 11/08/2024 Active Encounters Date Type Department Care Team Description 11/08/2024 10:34 AM [facility] - 11/08/2024 1:26 PM [facility] Emergency [facility] Emergency Department [address] [place] [address] Gail Acosta DO History of renal stone [...] on file Legal Sex Male 10:29 AM [facility] Gender Identity Not on file Sexual Orientation Not on file Last Filed Vital Signs Vital Sign Reading Time Taken Comments Blood Pressure 165/87 11/08/2024 1:00 PM [facility] Pulse 62 11/08/2024 1:00 PM [facility] Temperature 36.5 C (97.7 F) 11/08/2024 10:33 AM [facility] Respiratory Rate 18 11/08/2024 1:00 PM [facility] Oxygen Saturation 97% 11/08/2024 1:00 PM [facility] Inhaled Oxygen Concentration - - Weight 110.7 kg (244 lb) 11/08/2024 10:33 AM [facility] Height 182.9 cm (6') 11/08/2024 10:33 AM [facility] Body Mass Index 33.09 11/08/2024 10:33 AM [facility] Plan of Treatment Health Maintenance Due Date [...] REFLEX TO CULTURE STAT 11/08/2024 12:[address] [employer] [address] ABDOMEN PELVIS WO IV CONTRAST STAT 11/08/2024 11:45 AM [facility] COMPREHENSIVE METABOLIC PANEL STAT 11/08/2024 10:58 AM [facility] HEMOGRAM/DIFF STAT 11/08/2024 10:58 AM [facility] HOLD SERUM TUBE STAT 11/08/2024 10:58 AM [facility] HOLD NA CITRATE STAT 11/08/2024 10:58 AM [facility] HOLD EDTA STAT 11/08/2024 10:58 AM [facility] HOLD LI HEPARIN STAT 11/08/2024 10:58 AM [facility] from Last 3 Months Results * URINALYSIS, REFLEX TO CULTURE (11/08/2024 12:38 PM [facility]) Urine Color Yellow Straw, Yellow, Michelle 11/08/2024 12:51 PM [facility] Urine Appearance Clear Clear 11/08/2024 12:51 PM [facility] Urine Specific [place] 1.025 1.003 - 1.035 11/08/2024 12:51 PM [facility] Urine pH 5.5 5.0 - 8.0 11/08/2024 12:51 PM [facility] Urine Glucose Negative Negative 11/08/2024 12:51 PM [facility] Urine Ketones Negative Negative 11/08/2024 12:51 PM [facility] Urine Protein Trace Negative, Trace mg/dL 11/08/2024 12:51 PM [facility] Urine Nitrites Negative Negative 11/08/2024 12:51 PM [facility] Urine Leukocyte Esterase Negative Negative 11/08/2024 12:51 PM [facility] Urine URINE SPECIMEN COLLECTION, CLEAN CATCH / Unknown Non-blood collection / Unknown 11/08/2024 12:38 PM [facility] 11/08/2024 12:43 PM [facility] Narrative [facility] - 11/08/2024 12:51 PM [facility] A routine urine not reflexing to a Microscopic exam means the dipstick blood test is negative. A Urine Culture is not indicated. us Gail Acosta DO EC URINE ORDERABLES Final R esult [facility] [address] [place] [address], [facility] * CT ABDOMEN PELVIS WO IV CONTRAST (11/08/2024 11:45 AM [facility]) Anatomical Region Laterality Modality Abdomen, Pelvis Computed Tomogra phy 11/08/2024 11:4 5 AM [facility] Narrative 11/08/2024 11:57 AM [facility] This document is currently in Final Status [...] * HOLD LI HEPARIN (11/08/2024 10:58 AM [facility]) Blood BLOOD SPECIMEN / Unknown Venipuncture / Unknown 11/08/2024 10:58 AM [facility] 11/08/2024 11:03 AM [facility] us Gail A Dave DO EC CHEMISTRY ORDERABLES Fin al Result Performing Organization Address [facility] Phone Number [facility] [address] [place] [address] * HOLD NA CITRATE (11/08/2024 10:58 AM [facility]) Blood BLOOD SPECIMEN / Unknown Venipuncture / Unknown 11/08/2024 10:58 AM [facility] 11/08/2024 11:03 AM [facility] us Gail A Dave DO EC HEMATOLOGY ORDERABLES Fi nal Result Performing Organization Address [facility] Phone Number [facility] [address] [place] [address] * HOLD PURPLE TUBE (11/08/2024 10:58 AM [facility]) Blood BLOOD SPECIMEN / Unknown Venipuncture / Unknown 11/08/2024 10:58 AM [facility] 11/08/2024 11:03 AM [facility] Gail A Dave DO EC HEMATOLOGY ORDERABLES Fi nal Result Performing Organization Address [facility] Phone Number [facility] [address] [place] [address] * HOLD SERUM TUBE (11/08/2024 10:58 AM [facility]) Blood BLOOD SPECIMEN / Unknown Venipuncture / Unknown 11/08/2024 10:58 AM [facility] 11/08/2024 11:03 AM [facility] us Gail A Dave DO EC CHEMISTRY ORDERABLES Fin al Result Performing Organization Address [facility] Phone Number [facility] [address] [place] [address] * (ABNORMAL) COMPREHENSIVE METABOLIC PANEL (11/08/2024 10:58 AM [facility]) Sodium 140 134 - 143 mEq/L 11/08/2024 11:20 AM [facility] Potassium 4.2 3.4 - 5.1 mEq/L 11/08/2024 11:20 AM [facility] Chloride 111(H) 99 - 110 mEq/L 11/08/2024 11:20 AM [facility] Carbon Dioxide 22 19 - 29 mEq/L 11/08/2024 11:20 AM [facility] Anion Gap 7.0 3.0 - 15.0 mEq/L 11/08/2024 11:20 AM [facility] Blood Urea Nitrogen 23 5 - 24 mg/dL 11/08/2024 11:20 AM [facility] Creatinine 0.97 0.70 - 1.20 mg/dL 11/08/2024 11:20 AM [facility] Glomerular Filtration Rate 80 >60 mL/min/1. 73 m*2 11/08/2024 11:20 AM [facility] Comment:Risk of cardiovascul ar disease increases when GFR is abnormal; persistently reduced GFR values are a specific indication of CKD. This calculation uses CKD- EPI 2020 equation without adjustment for race; it has not been validated in women. Calcium 9.1 8.4 - 10.5 mg/dL 11/08/2024 11:20 AM [facility] Glucose 110(H) 70 - 99 mg/dL 11/08/2024 11:20 AM [facility] Protein, Total 7.5 6.0 - 8.0 g/dL 11/08/2024 11:20 AM [facility] Albumin 3.9 3.5 - 5.0 g/dL 11/08/2024 11:20 AM [facility] Alkaline Phosphatase 72 40 - 150 IU/L 11/08/2024 11:20 AM [facility] Aspartate Aminotransferase 25 10 - 40 IU/L 11/08/2024 11:20 AM [facility] Alanine Aminotransferase 26 6 - 40 IU/L 11/08/2024 11:20 AM [facility] Bilirubin, Total 0.7 0.2 - 1.2 mg/dL 11/08/2024 11:20 AM [facility] Blood BLOOD SPECIMEN / Unknown Venipuncture / Unknown 11/08/2024 10:58 AM [facility] 11/08/2024 11:03 AM [facility] - 11/08/2024 11:20 AM [facility] Current ADA criteria for Glucose: Normal: 70-99 mg/dL Impaired Fasting Glucose: 100-125 mg/dL Diabetes Mellitus: at or above 126 mg/dL The diagnosis of diabetes must be confirmed on a subsequent day by measuring Fasting Plasma Glucose, 2-hr PG or random plasma glucose (if symptoms are present). us Gail Acosta DO CHEMISTRY ORDERABLES Fin al Result Performing Organization Address City/State/[facility] Co de Phone Number [facility] [address] [place] [address] * HEMOGRAM/DIFFERENTIAL (11/08/2024 10:58 AM [facility]) WBC 7.1 3.2 - 11.0 10*9/L 11/08/2024 11:05 AM [facility] RBC 4.71 4.14 - 5.76 10*12/L 11/08/2024 11:05 AM [facility] HGB 14.7 12.9 - 16.9 g/dL 11/08/2024 11:05 AM [facility] HCT 42.7 38.4 - 49.7 % 11/08/2024 11:05 AM [facility] MCV 90.7 81.4 - 99.0 fL 11/08/2024 11:05 AM [facility] MCH 31.2 26.7 - 33.1 pg 11/08/2024 11:05 AM [facility] MCHC 34.4 31.6 - 35.5 g/dL 11/08/2024 11:05 AM [facility] RDW 12.5 11.3 - 14.6 % 11/08/2024 11:05 AM [facility] PLT 207 130 - 375 10*9/L 11/08/2024 11:05 AM [facility] Neutrophils % 75.2 % 11/08/2024 11:05 AM [facility] Lymphocytes % 18.0 % 11/08/2024 11:05 AM [facility] Monocytes % 5.6 % 11/08/2024 11:05 AM [facility] Eosinophils % 0.7 % 11/08/2024 11:05 AM [facility] Basophils % 0.4 % 11/08/2024 11:05 AM [facility] Immature Granulocytes % 0.1 % 11/08/2024 11:05 AM [facility] Neutrophils Absolute 5.3 1.5 - 7.6 10*9/L 11/08/2024 11:05 AM [facility] Lymphocytes Absolute 1.3 0.8 - 3.3 10*9/L 11/08/2024 11:05 AM [facility] Monocytes Absolute 0.4 0.2 - 0.9 10*9/L 11/08/2024 11:05 AM [facility] Eosinophils Absolute 0.1 0.0 - 0.4 10*9/L 11/08/2024 11:05 AM [facility] Basophils Absolute 0.0 0.0 - 0.1 10*9/L 11/08/2024 11:05 AM [facility] Immature Granulocytes Absolute 0.01 0.00 - 0.06 10*9/L 11/08/2024 11:05 AM [facility] Blood BLOOD SPECIMEN / Unknown Venipuncture / Unknown 11/08/2024 10:58 AM [facility] 11/08/2024 11:03 AM [facility] us Gail Acosta DO EC HEMATOLOGY ORDERABLES Fi nal Result [facility] [address] [place] [address], [facility] from Last 3 Months Insurance [employer] MEDICARE COST PART A&B Care Teams Teacher Asst Relationship Specialty Start Date End Date Taryn Villasenor MD [address] [facility] [place] [id number] PCP - General Internal Medicine 11/08/24
--- OUTSIDE RECORDS SUMMARY | 2024-11-18 06:18 | XMS_ITS | Clinical Summary ---
Author Organization [facility] Address [place], [place] [address] Care Team Providers Care Cras Name Role Phone Taryn Villasenor MD Primary Care Provider [phone] Laura Stephens MD Unavailable [phone] Allergies Active Allergy Reactions Criticality Noted [...] mg sublingual tabletIndications:Coron heriberto artery disease involving platinum coronary artery of platinum heart without angina pectoris DISSOLVE ONE TABLET [...] enteric coated tabletIndications:Coron heriberto artery disease involving platinum coronary artery of platinum heart without angina pectoris Take 1 Tablet (81 mg) by mouth once daily with a meal. 30 Tablet 08/09/20 24 11:42 AM [facility]N 024 Active oxyCODONE (ROXICODONE) 5 mg immediate release tabletIndications:Prost ate cancer (HC) Take 1 Tablet (5 mg) by mouth every 4 hours if needed for Pain. 10 Tablet 08/09/20 24 11:42 AM [employer]N 024 Active polyethylene glycoL (Miralax) 17 gram/scoop powderIndications:Prost ate cancer (HC) Mix 1 scoop (17 g) in liquid then take by mouth once daily. 238 g 08/09/20 11:42 AM [employer]N 024 Active Active Problems Problem Noted Date Diagnosed Date Prepatellar bursitis of left knee 07/30/2023 Primary osteoarthritis involving multiple joints 03/26/2018 Personal history of colonic polyps 01/25/2016 Coronary artery disease 08/15/2015 Overview (03/26/2018): 09/2014: ST elevation myocardial infarction, s/p stenting of distal circumflex at [facility] LVH (left ventricular hypert rophy) due to hypertensive disease 03/11/2013 Overview (03/11/2013): Mild, per echo 10/2012 Prostate cancer 03/09/2013 Overview (03/26/2018): S/p prostatectomy and radiation therapy Dermatitis 06/14/2011 Hypertension 02/28/2010 Obesity, unspecified 03/29/2009 Rosacea 03/23/2009 Pure hypercholesterolemia 03/10/2007 Overview (03/10/2007): mild Resolved Problems Problem Noted Date Diagnosed Date Resolved Date Pain in left ankle 11/27/2014 7 PA (myocardial infarction) 09/14/2014 0 03/26/2018 Rectal irritation 03/06/2011 09/09/2017 Calculus of kidney 10/26/2007 3 Encounters Date Type Department Care Team Description 08/18/[address] [facility] [address] [place] [address] Antoni Jarvis MD from Last 3 Months [...] on file Legal Sex Male 5:23 AM [employer] INTERN Gender Identity Not on file Sexual Orientation Not on file Occupation Industry Job Start Date Job End Date + Not on file Not on file Not on file Not on file Not on file Not on file Not on file Obstetrics History Last Filed Vital Signs Vital Sign Reading Time Taken Comments Blood Pressure 175/89 08/09/2024 7:31 AM [employer] Pulse 76 08/09/2024 7:31 AM [employer] Temperature 36.9 C (98.5 F) 08/09/2024 7:31 AM [employer]N Respiratory Rate 18 08/09/2024 7:31 AM [employer] Oxygen Saturation 92% 08/09/2024 7:31 AM [employer] Inhaled Oxygen Concentration - - Weight 108 kg (238 lb 3.2 oz) 08/09/2024 6:00 AM [employer]N Height 182.9 cm (6') 08/07/2024 8:23 AM [...] Comments ANTI HCV Routine 10/19/2013 11:01 AM SCI[employer]N Routine general medical examination at a health care facility from Last 3 Months or Most Recently Relevant to Health Maintenance Results * ANTI HCV (10/19/2013 11:01 AM SCI[employer] INTERN) ANTI HCV Non-reacti ve [facility] Blood specimen (specimen) BLOOD SPECIMEN / Unknown 10/19/2013 11:01 AM SCIENCE INTERN 10/19/2013 10:50 AM [employer]N us Antonio Orozco MD SEND OUTS Fin al Result [facility] [place]IP [id number] [place] [id number] from Last 3 Months or Most Recently Relevant to Health Maintenance Insurance MEDICARE PART A HB ONLY MEDICARE PART B HB ONLY [employer] PB ONLY [employer] MEDICARE PART B HB ONLY [id number] Advance Directives * Full Code (Latest Code [...] 1:21 PM 03/19/2013 8:38 PM Care Teams Cras Relationship Specialty Start Date End Date Taryn Villasenor MD [address] [facility] [place] [address] PCP - General Internal Medicine 09/09/17 Laura Stephens MD [address] [facility] [place] [address] Surgery - Urology 09/09/17
== END 2024-11-18 08:02 | disposition home or self-care (01) ==
PROVIDERS: Emergency Provider Family Medicine; PCP Internal Medicine
DX: M54.16 Radiculopathy, lumbar region (principal)
CPT/HCPCS: 99283

== ENCOUNTER 2024-11-18 07:55 | Outpatient (CLI) | payer MEDICARE, OTHER, SELFPAY | END 2024-11-18 07:56 | disposition home or self-care (01) | LOC: MRI 07:56 | PROVIDERS: PCP Internal Medicine; Visit Provider Physician Assistant | DX: M54.10 Radiculopathy, site unspecified (principal); M47.896 Other spondylosis, lumbar region; M51.26 Other intervertebral disc displacement, lumbar region; M54.50 Low back pain, unspecified | CPT/HCPCS: 72148; 99283 ==

== ENCOUNTER 2024-12-01 13:45 | Outpatient (CLI) | payer MEDICARE, OTHER, SELFPAY | END 2024-12-01 13:46 | disposition home or self-care (01) | LOC: INJ CL 13:45 | PROVIDERS: PCP Internal Medicine; Visit Provider Family Medicine | DX: M54.16 Radiculopathy, lumbar region (principal); M51.369 Other intervertebral disc degeneration, lumbar region without mention of lumbar back pain or lower extremity pain | CPT/HCPCS: 64483; J1100; Q9966 ==

== ENCOUNTER 2025-01-26 06:49 | Outpatient (CLI) | payer MEDICARE, OTHER, SELFPAY | END 2025-01-26 06:50 | disposition home or self-care (01) | LOC: INJ CL 06:49 | PROVIDERS: PCP Internal Medicine; Visit Provider Family Medicine | DX: M54.16 Radiculopathy, lumbar region (principal); M51.369 Other intervertebral disc degeneration, lumbar region without mention of lumbar back pain or lower extremity pain | CPT/HCPCS: 64483; J1100; Q9966 ==

== ENCOUNTER 2025-06-08 13:17 | Outpatient (CLI) | payer MEDICARE, OTHER, SELFPAY | END 2025-06-08 13:18 | disposition home or self-care (01) | LOC: INJ CL 13:19 | PROVIDERS: PCP Internal Medicine; Visit Provider Family Medicine | DX: M54.16 Radiculopathy, lumbar region (principal); M51.369 Other intervertebral disc degeneration, lumbar region without mention of lumbar back pain or lower extremity pain | CPT/HCPCS: 64483; J1100; Q9966 ==